=== PATIENT | male | born 1965 | race Caucasian/White ===

== ENCOUNTER 2020-08-08 11:08 | Emergency (ER) | payer MEDICAID ==
[~2020-08-08] VITALS: Ht 185.4 cm; Wt 117.7 kg
[2020-08-08 11:20] VITALS: BP 133/92
[2020-08-08] MEDS ORDERED: GABA300C PO (11:32)
== END 2020-08-08 11:41 | disposition home or self-care (01) ==
LOC: ER 11:09
DX: F10.10 Alcohol abuse, uncomplicated (principal); K21.9 Gastro-esophageal reflux disease without esophagitis; F32.9 Major depressive disorder, single episode, unspecified; Z90.89 Acquired absence of other organs; Z72.89 Other problems related to lifestyle; Z79.899 Other long term (current) drug therapy; Y90.9 Presence of alcohol in blood, level not specified
CPT/HCPCS: 99283

== ENCOUNTER 2021-07-05 16:48 | Emergency (ER) | payer MEDICAID ==
[~2021-07-05] VITALS: Ht 185.4 cm; Wt 81.8 kg
[~2021-07-05 16:48] MED LIST: GABA300C PO
[2021-07-05 17:34] LABS: BASOPHILS # (AUTO) 0.1 X10'3 (0-0.2); BASOPHILS % (AUTO) 0.8 % (0-1); EOSINOPHILS # (AUTO) 0.1 X10'3 (0-0.9); EOSINOPHILS % (AUTO) 0.7 % (0-6); HEMATOCRIT 56.8 % (42.0-52.0); LYMPHOCYTES # (AUTO) 2.2 X10'3 (1.1-4.8); LYMPHOCYTES % (AUTO) 17.3 % (21-51); MEAN CORPUSCULAR HEMOGLOBIN 30.7 PG (27.0-31.0); MEAN CORPUSCULAR HGB CONC 34.3 g/dL (33.0-36.5); MEAN CORPUSCULAR VOLUME 89.5 FL (78-98); MEAN PLATELET VOLUME 8.9 FL (7.4-10.4); MONOCYTES # (AUTO) 1.2 X10'3 (0-0.9); MONOCYTES % (AUTO) 9.3 % (2-12); NEUTROPHILS # (AUTO) 9.2 X10'3 (1.8-7.7); NEUTROPHILS % (AUTO) 71.9 % (42-75); PLATELET COUNT 286 X10'3 (140-440); RED BLOOD COUNT 6.35 X10'6 (4.70-6.10); RED CELL DISTRIBUTION WIDTH 15.7 % (11.5-14.5); WHITE BLOOD COUNT 12.8 X10'3 (4.5-11.0)
[2021-07-05 17:39] LABS: HEMOGLOBIN 19.5 g/dl (14.0-17.9)
[2021-07-05 17:45] LABS: ALANINE AMINOTRANSFERASE 379 U/L (12-78); ALBUMIN 3.9 G/DL (3.4-5.0); ALBUMIN/GLOBULIN RATIO 0.9 (1.1-1.5); ALKALINE PHOSPHATASE 113 IU/L (46-116); ANION GAP 16 (8-16); ASPARTATE AMINO TRANSFERASE 164 U/L (10-37); BILIRUBIN,TOTAL 2.1 MG/DL (0.1-1.0); BLOOD UREA NITROGEN 34 MG/DL (7-18); BUN/CREATININE RATIO 28.8 (5.4-32.0); CALCIUM 9.8 MG/DL (8.5-10.1); CHLORIDE 101 MMOL/L (99-107); CREATININE 1.18 MG/DL (0.60-1.10); GLUCOSE 118 MG/DL (70-104); POTASSIUM 3.5 MMOL/L (3.5-5.1); SODIUM 142 MMOL/L (135-145); TOTAL CARBON DIOXIDE 24.6 MMOL/L (24-32); TOTAL PROTEIN 8.3 G/DL (6.4-8.2); eGFR 64 ML/MIN
[2021-07-05] MEDS ORDERED: normal saline 1000ML IV soln IVB ONE (17:50)
[2021-07-05 17:54] LABS: ETHANOL < 0.010 GM/DL (0.0-0.010)
[2021-07-05] MEDS ORDERED: thiamine 100mg/ml 2ml inj. IV ONE (18:15)
--- NOTE | 2021-07-05 18:37 | NUR ---
pt repors drinking a pack of beer a day. when asked how many in a pack (6,18 or 24 pack), pt stated it just depended on the day. md lyn
[2021-07-05] MEDS ORDERED: OMEP-50 PO (20:08)
[2021-07-05] MEDS ORDERED: ATOR20TA66 PO (20:08)
[2021-07-05 21:02] LABS: URINE AMPHETAMINE SCREEN NEGATIVE (Neg); URINE BARBITUATE SCREEN NEGATIVE (Neg); URINE BENZODIAZEPINES SCREEN NEGATIVE (Neg); URINE CANNABINOID SCREEN NEGATIVE (Neg); URINE COCAINE SCREEN NEGATIVE (Neg); URINE METHADONE SCREEN NEGATIVE (Neg); URINE OPIATE SCREEN NEGATIVE (Neg); URINE PHENCYCLIDINE SCREEN NEGATIVE (Neg)
[2021-07-05 21:22] LABS: UA COLLECTION TYPE URINAL
[2021-07-05 21:23] LABS: CLARITY,URINE CLOUDY (Clear); COLOR,URINE AMBER (Yellow); GLUCOSE, URINE NEGATIVE (Neg); KETONES,URINE TRACE mg/dl (Neg); LEUKOCYTE ESTERASE ,URINE NEGATIVE (Neg); NITRITES, URINE NEGATIVE (Neg); OCCULT BLOOD,URINE TRACE-LYSED (Neg); PROTEIN,URINE TRACE mg/dl (Neg)
[2021-07-05 21:29] LABS: MUCUS STRANDS MANY /LPF (Neg)
[2021-07-05 21:30] LABS: SQUAMOUS EPITHELIAL CELL,UR FEW /LPF (FEW)
[2021-07-05 21:33] LABS: RBC,URINE 0-2 /HPF (0-2); WBC,URINE 0-4 /HPF (0-4)
[2021-07-05 21:37] LABS: AMORPHOUS URATES 3+; BACTERIA,URINE NONE SEEN /HPF (Neg)
[2021-07-05 21:52] VITALS: BP 120/92
== END 2021-07-05 21:54 | disposition home or self-care (01) ==
LOC: ER 16:48
DX: R41.0 Disorientation, unspecified (principal); E86.0 Dehydration; K21.9 Gastro-esophageal reflux disease without esophagitis; F32.9 Major depressive disorder, single episode, unspecified; Z79.899 Other long term (current) drug therapy
CPT/HCPCS: 36415; 70450; 71045; 80053; 80305; 80320; 81001; 82140; 83880; 84145; 84443; 84484; 85025; 93005; 96361; 96374; 99285; J3411; J7030

== ENCOUNTER 2021-07-11 05:49 | Emergency (ER) | payer MEDICAID ==
[~2021-07-11] VITALS: Ht 185.4 cm; Wt 180.0 kg
[~2021-07-11 05:49] MED LIST changes: +ATOR20TA66 PO; -GABA300C PO; +OMEP-50 PO
[2021-07-11 06:14] VITALS: BP 137/83
== END 2021-07-11 09:12 | disposition home or self-care (01) ==
LOC: ER 05:50
DX: F22 Delusional disorders (principal); E86.0 Dehydration; R00.0 Tachycardia, unspecified; K21.9 Gastro-esophageal reflux disease without esophagitis; F32.9 Major depressive disorder, single episode, unspecified; Z90.89 Acquired absence of other organs; Z72.89 Other problems related to lifestyle; Z79.899 Other long term (current) drug therapy
CPT/HCPCS: 99281; 99283

== ENCOUNTER 2021-07-11 18:30 | Emergency (ER) | payer MEDICAID ==
[~2021-07-11] VITALS: Ht 185.4 cm; Wt 81.8 kg
[2021-07-11 18:52] VITALS: BP 119/98
== END 2021-07-11 21:29 | disposition home or self-care (01) ==
LOC: ER 18:30
DX: Z20.822 Contact with and (suspected) exposure to COVID-19 (principal); R53.83 Other fatigue; R19.7 Diarrhea, unspecified; R05.9 Cough, unspecified; K21.9 Gastro-esophageal reflux disease without esophagitis; F32.9 Major depressive disorder, single episode, unspecified; Z90.89 Acquired absence of other organs; Z72.89 Other problems related to lifestyle; Z79.899 Other long term (current) drug therapy
CPT/HCPCS: 87635; 99283; C9803

== ENCOUNTER 2021-07-11 23:30 | Emergency (ER) | payer MEDICAID ==
[~2021-07-11] VITALS: Ht 185.4 cm; Wt 81.8 kg
[2021-07-11 23:43] VITALS: BP 129/101
== END 2021-07-11 23:45 | disposition home or self-care (01) ==
LOC: ER 23:31
DX: Z02.89 Encounter for other administrative examinations (principal); K21.9 Gastro-esophageal reflux disease without esophagitis; F32.9 Major depressive disorder, single episode, unspecified; F17.210 Nicotine dependence, cigarettes, uncomplicated; Z90.89 Acquired absence of other organs; Z72.89 Other problems related to lifestyle; Z79.899 Other long term (current) drug therapy
CPT/HCPCS: 99283

== ENCOUNTER 2021-07-14 01:37 | Emergency (ER) | payer MEDICAID ==
[~2021-07-14] VITALS: Ht 185.4 cm; Wt 90.9 kg
[2021-07-14] MEDS ORDERED: normal saline 1000ML IV soln IVB ONE (02:10)
[2021-07-14 03:32] LABS: BASOPHILS # (AUTO) 0.1 X10'3 (0-0.2); BASOPHILS % (AUTO) 0.6 % (0-1); EOSINOPHILS # (AUTO) 0.1 X10'3 (0-0.9); EOSINOPHILS % (AUTO) 0.7 % (0-6); HEMATOCRIT 43.6 % (42.0-52.0); HEMOGLOBIN 14.5 g/dl (14.0-17.9); LYMPHOCYTES # (AUTO) 1.4 X10'3 (1.1-4.8); LYMPHOCYTES % (AUTO) 13.2 % (21-51); MEAN CORPUSCULAR HEMOGLOBIN 30.3 PG (27.0-31.0); MEAN CORPUSCULAR HGB CONC 33.3 g/dL (33.0-36.5); MEAN CORPUSCULAR VOLUME 91.2 FL (78-98); MEAN PLATELET VOLUME 10.5 FL (7.4-10.4); MONOCYTES # (AUTO) 0.8 X10'3 (0-0.9); NEUTROPHILS # (AUTO) 8.2 X10'3 (1.8-7.7); NEUTROPHILS % (AUTO) 77.5 % (42-75); PLATELET COUNT 260 X10'3 (140-440); RED BLOOD COUNT 4.78 X10'6 (4.70-6.10); RED CELL DISTRIBUTION WIDTH 15.4 % (11.5-14.5); WHITE BLOOD COUNT 10.6 X10'3 (4.5-11.0)
[2021-07-14 03:38] LABS: ALANINE AMINOTRANSFERASE 158 U/L (12-78); ALBUMIN 3.5 G/DL (3.4-5.0); ALBUMIN/GLOBULIN RATIO 1.1 (1.1-1.5); ALKALINE PHOSPHATASE 92 IU/L (46-116); ANION GAP 11 (8-16); ASPARTATE AMINO TRANSFERASE 70 U/L (10-37); BILIRUBIN,TOTAL 1.3 MG/DL (0.1-1.0); BLOOD UREA NITROGEN 20 MG/DL (7-18); BUN/CREATININE RATIO 23.5 (5.4-32.0); CALCIUM 8.9 MG/DL (8.5-10.1); CHLORIDE 100 MMOL/L (99-107); CREATININE 0.85 MG/DL (0.60-1.10); GLUCOSE 83 MG/DL (70-104); POTASSIUM 3.7 MMOL/L (3.5-5.1); SODIUM 138 MMOL/L (135-145); TOTAL CARBON DIOXIDE 26.6 MMOL/L (24-32); TOTAL PROTEIN 6.8 G/DL (6.4-8.2); eGFR > 90 ML/MIN
[2021-07-14 03:55] LABS: ETHANOL < 0.010 GM/DL (0.0-0.010)
[2021-07-14 04:27] VITALS: BP 128/59
[2021-07-14 04:28] LABS: LARGE PLATELETS MODERATE; PLATELET ESTIMATE NORMAL
== END 2021-07-14 04:05 | disposition home or self-care (01) ==
LOC: ER 01:38
DX: R41.0 Disorientation, unspecified (principal); Z59.00 Homelessness unspecified; K21.9 Gastro-esophageal reflux disease without esophagitis; F32.9 Major depressive disorder, single episode, unspecified; Z87.81 Personal history of (healed) traumatic fracture
CPT/HCPCS: 36415; 80053; 80320; 84443; 85008; 85025; 99283; J7030

== ENCOUNTER 2021-07-14 17:49 | Emergency (ER) | payer MEDICAID ==
[~2021-07-14] VITALS: Ht 185.4 cm; Wt 88.6 kg
[2021-07-14 17:56] VITALS: BP 111/93
== END 2021-07-14 18:56 | disposition home or self-care (01) ==
LOC: ER 17:49
DX: R41.0 Disorientation, unspecified (principal); K21.9 Gastro-esophageal reflux disease without esophagitis; F32.9 Major depressive disorder, single episode, unspecified; Z59.00 Homelessness unspecified
CPT/HCPCS: 99283

== ENCOUNTER 2022-01-25 14:20 | Emergency (ER) | payer MEDICAID ==
[~2022-01-25] VITALS: Ht 185.4 cm; Wt 113.0 kg
[~2022-01-25 14:20] MED LIST changes: -OMEP-50 PO; +OMEP20CA16 PO
[2022-01-25 14:30] VITALS: BP 112/76
== END 2022-01-25 17:02 | disposition left against medical advice (07) ==
LOC: ER 14:22
DX: R44.3 Hallucinations, unspecified (principal); Z53.21 Procedure and treatment not carried out due to patient leaving prior to being seen by health care provider

== ENCOUNTER 2022-01-30 17:13 | Emergency (ER) | payer MEDICAID ==
[~2022-01-30] VITALS: Ht 185.4 cm; Wt 93.0 kg
[2022-01-30 18:02] LABS: BASOPHILS # (AUTO) 0.1 X10'3 (0-0.2); BASOPHILS % (AUTO) 0.7 % (0-1); EOSINOPHILS # (AUTO) 0.3 X10'3 (0-0.9); HEMATOCRIT 50.3 % (42.0-52.0); HEMOGLOBIN 17.1 g/dl (14.0-17.9); LYMPHOCYTES # (AUTO) 2.3 X10'3 (1.1-4.8); LYMPHOCYTES % (AUTO) 22.5 % (21-51); MEAN CORPUSCULAR HEMOGLOBIN 29.6 PG (27.0-31.0); MEAN CORPUSCULAR HGB CONC 34.1 g/dL (33.0-36.5); MEAN CORPUSCULAR VOLUME 86.9 FL (78-98); MEAN PLATELET VOLUME 8.8 FL (7.4-10.4); MONOCYTES # (AUTO) 0.7 X10'3 (0-0.9); MONOCYTES % (AUTO) 6.4 % (2-12); NEUTROPHILS % (AUTO) 67.4 % (42-75); PLATELET COUNT 237 X10'3 (140-440); RED BLOOD COUNT 5.78 X10'6 (4.70-6.10); WHITE BLOOD COUNT 10.5 X10'3 (4.5-11.0)
[2022-01-30 19:03] LABS: ALANINE AMINOTRANSFERASE 23 U/L (12-78); ALBUMIN 4.4 G/DL (3.4-5.0); ALBUMIN/GLOBULIN RATIO 1.2 (1.1-1.5); ALKALINE PHOSPHATASE 90 IU/L (46-116); ANION GAP 15 (8-16); ASPARTATE AMINO TRANSFERASE 17 U/L (10-37); BILIRUBIN,TOTAL 0.9 MG/DL (0.1-1.0); BLOOD UREA NITROGEN 13 MG/DL (7-18); BUN/CREATININE RATIO 13.4 (5.4-32.0); CALCIUM 9.6 MG/DL (8.5-10.1); CHLORIDE 100 MMOL/L (99-107); CREATININE 0.97 MG/DL (0.60-1.10); GLUCOSE 83 MG/DL (70-104); POTASSIUM 3.7 MMOL/L (3.5-5.1); SODIUM 138 MMOL/L (135-145); TOTAL CARBON DIOXIDE 22.7 MMOL/L (24-32); eGFR 79 ML/MIN
[2022-01-30 19:12] LABS: ETHANOL < 0.010 GM/DL (0.0-0.010)
[2022-01-30 20:21] LABS: CLARITY,URINE CLEAR (Clear); GLUCOSE, URINE NEGATIVE (Neg); KETONES,URINE 15 mg/dl (Neg); LEUKOCYTE ESTERASE ,URINE NEGATIVE (Neg); NITRITES, URINE NEGATIVE (Neg); OCCULT BLOOD,URINE NEGATIVE (Neg); PH,URINE 5.5 (4.8-8.0); PROTEIN,URINE TRACE mg/dl (Neg)
[2022-01-30 20:23] LABS: COLOR,URINE AMBER (Yellow); UA COLLECTION TYPE VOIDED
[2022-01-30 20:29] LABS: BACTERIA,URINE NONE SEEN /HPF (Neg); MUCUS STRANDS MANY /LPF (Neg); RBC,URINE NONE SEEN /HPF (0-2); SQUAMOUS EPITHELIAL CELL,UR FEW /LPF (FEW); WBC,URINE 0-4 /HPF (0-4)
[2022-01-30 20:32] LABS: URINE AMPHETAMINE SCREEN NEGATIVE (Neg); URINE BARBITUATE SCREEN NEGATIVE (Neg); URINE BENZODIAZEPINES SCREEN NEGATIVE (Neg); URINE CANNABINOID SCREEN NEGATIVE (Neg); URINE COCAINE SCREEN NEGATIVE (Neg); URINE METHADONE SCREEN NEGATIVE (Neg); URINE OPIATE SCREEN NEGATIVE (Neg); URINE PHENCYCLIDINE SCREEN NEGATIVE (Neg)
--- NOTE | 2022-01-30 23:08 | NUR ---
Pt pink, no acute/resp distress. Bed in lowest position, wheels locked, rail 2/2 up. Pt laying supine. Pt able to reposition self prn. Will continue to monitor for acute changes and needs.
--- NOTE | 2022-01-31 02:25 | NUR ---
Patient's was sent to [facility].
--- NOTE | 2022-01-31 05:59 | NUR ---
Covid swab collected, labeled and walked to lab. Pt pink, no acute/resp distress. Bed in lowest position, wheels locked, rail 2/2 up. Pt laying left. Pt able to reposition self prn. Will continue to monitor for acute changes and needs.
--- NOTE | 2022-01-31 06:00 | NUR ---
Hand off report to daysmdft RN
--- NOTE | 2022-01-31 06:01 | NUR ---
Covid swab collected, labeled and walked to lab. Pt aroldo well remained pink. Pt pink, no acute/resp distress. Bed in lowest position, wheels locked, rail 2/2 up. Pt laying supine. Pt able to reposition self prn. Will continue to monitor for acute changes and needs.
--- NOTE | 2022-01-31 06:02 | NUR ---
Handoff report to dayshift RN
--- NOTE | 2022-01-31 06:50 | NUR ---
Pt is awake and alert. Stated that he has memory issues. Cooperative.
[2022-01-31] MEDS ORDERED: nicotine 14mg patch - 24hr TD ONE (07:45)
--- NOTE | 2022-01-31 07:48 | NUR ---
PATIENT CHANGED INTO GREEN SCRUB PANTS AND WHITE SHIRT. BELONGINGS COLLECTED AND CHARTED ON PAPER, BAGS TAKEN TO 27 LOCK UP.
--- NOTE | 2022-01-31 09:00 | NUR ---
Pt ate 100% of breakfast.
--- NOTE | 2022-01-31 12:45 | NUR ---
Pt ate 90% of lunch.
--- NOTE | 2022-01-31 19:00 | NUR ---
The patient was moved to bed 27 in the main ER. He was very cooperative with the move. He has very poor short term memory and unable to give any kind of history about coming to the ER. He did state that he was an alcholic but has not been drinking for quite some time. He is only oriented to himself.
--- NOTE | 2022-01-31 21:19 | NUR ---
The patient has been resting on his bed. He is pleasant.
--- NOTE | 2022-01-31 23:10 | NUR ---
The patient is resting quietly on his bed but awake
--- NOTE | 2022-01-31 23:19 | NUR ---
The patient is unable to sleep and Dr. Hayes made aware and orders received.
[2022-01-31] MEDS ORDERED: traZODone 50mg tablet PO ONE (23:20)
--- NOTE | 2022-02-01 01:02 | NUR ---
The patient appears to be sleeping
--- NOTE | 2022-02-01 01:59 | NUR ---
The patient appears to be sleeping
--- NOTE | 2022-02-01 03:48 | NUR ---
The patient appears to be sleeping
--- NOTE | 2022-02-01 05:21 | NUR ---
The patient appears to be sleeping
--- NOTE | 2022-02-01 19:26 | NUR ---
The patient was moved to bed 25 at change of shift but after about one hour he asked to be moved back to bed 27 because he was bothered by the TV. He is very pleasant when approached. He has been resting on his bed. He has very poor short term memory. When asked what his discharge plans would be if he were to be discharged and he stated he did not know. He did state that he knew he was at [facility] and he knew the year but not the month. He ate 100% of his evening dinner. He is drinking fluids. He has not had any agitation or aggressive behaviors.
[2022-02-01] MEDS ORDERED: traZODone 50mg tablet PO SCH (20:00)
--- NOTE | 2022-02-01 20:41 | NUR ---
Currently the patient appears to be sleeping.
--- NOTE | 2022-02-01 22:31 | NUR ---
The patient appears to be sleeping
--- NOTE | 2022-02-02 00:49 | NUR ---
The patient appears to be sleeping
--- NOTE | 2022-02-02 01:54 | NUR ---
The patient appears to be sleeping
--- NOTE | 2022-02-02 03:48 | NUR ---
The patient appears to be sleeping
--- NOTE | 2022-02-02 04:58 | NUR ---
The patient appears to be sleeping
--- NOTE | 2022-02-02 07:00 | NUR ---
Pt resting on right side, respirations even and unlabored.
--- NOTE | 2022-02-02 08:24 | NUR ---
ORDERED SOCIAL SERVICE CONSULT.
--- NOTE | 2022-02-02 09:00 | NUR ---
Pt sleeping after he ate 100% of his breakfast. Pt denies psychotic symptoms, states he is here r/t his "memory issue."
--- NOTE | 2022-02-02 11:00 | NUR ---
Pt lying in low robison's position with eyes open. No apparent distress noted.
--- NOTE | 2022-02-02 13:00 | NUR ---
Pt is being discharged home to dad and step mom. Patient awake lying on his bed.
--- NOTE | 2022-02-02 14:50 | NUR ---
Pt's step mom came to pharmacy picking tech pt, as soon as pt saw her he begain getting agitated. Pt stated "so are you going to start lying about me again." Pt stated "I have a bad feeling about this." Pt repeated this several times. When asked if he wanted to go home pt stated "No, all they do is lie about me." "They stole my credit cards." "I have memory issues, so they mess with my head." When asked if he wanted to go to the [place] pt stated "anything is better then going home." Combining Machine Operator called JADE Mercedes to relay recent plan change. When asked is he was suicidal or homicial pt stated "I never was." "I just have memory problems." Combining Machine Operator also confirmed with ZULMA Kennedy clinician. Pt was given two bus passes. Pt left with all personal belongings.
--- NOTE | 2022-02-02 16:03 | NUR ---
PT LEFT UNIT AT 1505.
[2022-02-02 16:04] VITALS: BP 97/64
== END 2022-02-02 15:05 | disposition home or self-care (01) ==
LOC: ER 17:14
DX: F31.9 Bipolar disorder, unspecified (principal); F17.200 Nicotine dependence, unspecified, uncomplicated; K21.9 Gastro-esophageal reflux disease without esophagitis; Z73.6 Limitation of activities due to disability; Z20.822 Contact with and (suspected) exposure to COVID-19
CPT/HCPCS: 36415; 70450; 80053; 80305; 80320; 81001; 82140; 84443; 85025; 87635; 93005; 99285; C9803

== ENCOUNTER 2022-02-07 10:59 | Emergency (ER) | payer MEDICAID ==
[~2022-02-07] VITALS: Ht 185.4 cm; Wt 93.2 kg
[2022-02-07 11:28] VITALS: BP 121/87
== END 2022-02-07 14:45 | disposition home or self-care (01) ==
LOC: ER 10:59
DX: S06.9X9A Unspecified intracranial injury with loss of consciousness of unspecified duration, initial encounter (principal); R51.9 Headache, unspecified; K21.9 Gastro-esophageal reflux disease without esophagitis; F32.A Depression, unspecified; Z87.81 Personal history of (healed) traumatic fracture; W19.XXXA Unspecified fall, initial encounter; Y93.89 Activity, other specified; Y92.89 Other specified places as the place of occurrence of the external cause; Y99.8 Other external cause status
CPT/HCPCS: 99284; 99285

== ENCOUNTER 2022-06-08 12:28 | Inpatient (IN) | payer MEDICAID ==
[~2022-06-08] VITALS: Ht 185.4 cm; Wt 94.0 kg
[2022-06-08] VITALS (13 sets, daily range): BP systolic 120–146; BP diastolic 74–88
[2022-06-08 13:07] LABS: BASOPHILS # (AUTO) 0.1 X10'3 (0-0.2); BASOPHILS % (AUTO) 0.3 % (0-1); EOSINOPHILS % (AUTO) 0 % (0-6); HEMATOCRIT 45.2 % (42.0-52.0); LYMPHOCYTES # (AUTO) 0.5 X10'3 (1.1-4.8); LYMPHOCYTES % (AUTO) 2.7 % (21-51); MEAN CORPUSCULAR HGB CONC 33.1 g/dL (33.0-36.5); MEAN CORPUSCULAR VOLUME 87.5 FL (78-98); MEAN PLATELET VOLUME 8.9 FL (7.4-10.4); MONOCYTES # (AUTO) 1.2 X10'3 (0-0.9); MONOCYTES % (AUTO) 5.9 % (2-12); NEUTROPHILS # (AUTO) 17.9 X10'3 (1.8-7.7); NEUTROPHILS % (AUTO) 91.1 % (42-75); PLATELET COUNT 194 X10'3 (140-440); RED BLOOD COUNT 5.16 X10'6 (4.70-6.10); RED CELL DISTRIBUTION WIDTH 14.2 % (11.5-14.5); WHITE BLOOD COUNT 19.7 X10'3 (4.5-11.0)
[2022-06-08 13:20] LABS: ALANINE AMINOTRANSFERASE 18 U/L (12-78); ALBUMIN 3.4 G/DL (3.4-5.0); ALBUMIN/GLOBULIN RATIO 1.2 (1.1-1.5); ALKALINE PHOSPHATASE 69 IU/L (46-116); ANION GAP 13 (8-16); ASPARTATE AMINO TRANSFERASE 9 U/L (10-37); BILIRUBIN,TOTAL 0.7 MG/DL (0.1-1.0); BLOOD UREA NITROGEN 22 MG/DL (7-18); BUN/CREATININE RATIO 15.1 (5.4-32.0); CHLORIDE 106 MMOL/L (99-107); CREATININE 1.46 MG/DL (0.60-1.10); GLUCOSE 142 MG/DL (70-104); LIPASE < 50 U/L (73-393); POTASSIUM 3.4 MMOL/L (3.5-5.1); SODIUM 142 MMOL/L (135-145); TOTAL CARBON DIOXIDE 23.2 MMOL/L (24-32); TOTAL PROTEIN 6.3 G/DL (6.4-8.2); eGFR 50 ML/MIN
[2022-06-08 14:22] LABS: CLARITY,URINE CLEAR (Clear); GLUCOSE, URINE NEGATIVE (Neg); KETONES,URINE 15 mg/dl (Neg); LEUKOCYTE ESTERASE ,URINE NEGATIVE (Neg); NITRITES, URINE NEGATIVE (Neg); OCCULT BLOOD,URINE SMALL (Neg); PROTEIN,URINE 30 mg/dl (Neg); UROBILINOGEN,URINE 0.2 E.U/dL (0.2-1.0)
[2022-06-08 14:26] LABS: COLOR,URINE DARK YELLOW (Yellow); UA COLLECTION TYPE CLN CATCH MIDSTREAM
[2022-06-08 14:29] LABS: BACTERIA,URINE 2+ /HPF (Neg); WBC,URINE 30-50 /HPF (0-4)
[2022-06-08 14:30] LABS: SQUAMOUS EPITHELIAL CELL,UR FEW /LPF (FEW)
[2022-06-08 14:31] LABS: CELLULAR CAST 0-4 /LPF (NEGATIVE); WBC CASTS 0-3 /LPF (NEGATIVE)
[2022-06-08 14:32] LABS: MUCUS STRANDS MODERATE /LPF (Neg)
[2022-06-08] MEDS ORDERED: ceFOXitin 2GM-NS 100mL ADDvant 100 ML IV ONE (14:35)
[2022-06-08] MEDS ORDERED: metoclopramide 5 mg/ml inj IV PRN (15:40)
[2022-06-08] MEDS ORDERED: HYDROcodone/acetaminophen 5mg/325mg tablet PO PRN (15:40)
[2022-06-08] MEDS ORDERED: morphine 2 MG/ML inj. syringe IV PRN ×2 (15:40→19:50)
[2022-06-08] MEDS ORDERED: acetaminophen 325mg tablet PO PRN ×2 (15:40)
[2022-06-08] MEDS ORDERED: magnesium hydroxide 30ml (MOM) UD suspension PO PRN (15:40)
[2022-06-08] MEDS ORDERED: ondansetron/PF 4mg/2ml inj IV PRN ×2 (15:40→19:50)
[2022-06-08] MEDS: piperacillin/tazo 4.5gm/100ml 100 ML IV SCH (16:02)
[2022-06-08] MEDS: dextrose 5%-1/2 normal saline 1,000 ML IV SCH (16:02)
[2022-06-08] MEDS ORDERED: CHOL500049 PO (17:19)
[2022-06-08] MEDS ORDERED: DONE-46 PO (17:19)
[2022-06-08] MEDS: morphine 2 MG/ML inj. syringe IV PRN (18:53)
--- NOTE | 2022-06-08 19:07 | NUR ---
Dr. Vuong just in with patient, consent for surgery done and family callled.
--- NOTE | 2022-06-08 19:20 | NUR ---
OR team to take patient to OR from ER.
--- NOTE | 2022-06-08 19:39 | NUR ---
Left for OR
[2022-06-08] MEDS ORDERED: morphine 4 MG/ML inj SYRINge IV PRN (19:50)
[2022-06-08] MEDS ORDERED: proCHLORperazine 10 MG/2 ml inj IV PRN (19:50)
[2022-06-08] MEDS ORDERED: ringers solution, lacted 1,000 ML IV SCH (19:50)
[2022-06-08] MEDS ORDERED: meperidine/PF 25mg/ml syringe IV PRN ×3 (19:50)
[2022-06-08] MEDS ORDERED: fentaNYL /PF 50mcg/ml 5ml ampule ONE (19:53)
[2022-06-08] MEDS ORDERED: rocuronium 10mg/ml inj IV ONE ×2 (19:55→19:59)
[2022-06-08] MEDS ORDERED: LIDOcaine 2% (20mg/ml) 5ml vial ONE (19:55)
[2022-06-08] MEDS ORDERED: dexamethasone sod phosphate 4mg/ml inj. ONE ×2 (19:55→20:40)
[2022-06-08] MEDS ORDERED: propofol inj 20 ML IV ONE (19:55)
[2022-06-08] MEDS ORDERED: esmolol 10mg/ml inj IV ONE (19:59)
[2022-06-08] MEDS ORDERED: sevoflurane 250ml liquid IH ONE (19:59)
[2022-06-08] MEDS ORDERED: BUPIVAcaine/PF 2.5 mg/ml (0.25%) 30ml vial ONE (20:37)
[2022-06-08] MEDS ORDERED: ePHEDrine 50MG/ML INJ. ONE (20:40)
[2022-06-08] MEDS ORDERED: phenylephrine 10mg/ml inj. ONE (20:40)
[2022-06-08] MEDS ORDERED: ondansetron/PF 4mg/2ml inj ONE (20:40)
[2022-06-08] MEDS ORDERED: sugammadex 200mg/2ml injection IV ONE (20:57)
[2022-06-08] MEDS ORDERED: meperidine/PF 25mg/ml syringe ONE (21:05)
[2022-06-08] MEDS ORDERED: albumin (Human) 5% 250ml 250 ML IV ONE ×2 (21:07→21:13)
--- NOTE | 2022-06-08 21:09 | NUR ---
Received from OR via HOSPITAL BED , accompanied by Anesthesiologist DR MARIE and report given by Anesthesiolgist. PT PRESENTS WITH PIV 18G LEFT AC, ABD DRESSING WITH ROSALES DRAIN CDI, VSS. Addendum: 06/08/22 at 2132 by Fiona Guthrie RN, RN Amended: Links added.
[2022-06-08] MEDS ORDERED: HYDROcodone/acetaminophen 10/325mg tab PO PRN (21:10)
[2022-06-08] MEDS ORDERED: naloxone 0.4 mg/ml inj IV PRN (21:10)
[2022-06-08] MEDS ORDERED: furosemide 10 MG/1 ML 10ml inj IV ONE (21:25)
[2022-06-08] MEDS ORDERED: furosemide 20 MG/2 ML vial IV ONE (21:35)
--- NOTE | 2022-06-08 22:29 | NUR ---
Report called to receiving nurse KAYLA AGUILAR. Transferred via HOSPITAL BED ON TELE MONITOR TO ROOM 4024A. BED IN LOW LOCKED POSITION, PT HOOKED UP TO VITALS MONITOR, CALL LIGHT IN REACH. ONE PT Belongings BAG TAKEN TO ROOM 4024A. Special Issues communicated to receiving nurse. Addendum: 06/08/22 at 2234 by Fiona Guthrie RN, RN Amended: Links added.
[2022-06-09] VITALS (9 sets, daily range): BP systolic 105–179; BP diastolic 69–103
[2022-06-09] MEDS: dextrose 5%-1/2 normal saline 1,000 ML IV SCH ×3 (01:19→19:49)
[2022-06-09] MEDS: HYDROcodone/acetaminophen 10/325mg tab PO PRN ×2 (01:23→11:32)
[2022-06-09] MEDS: docusate sod 100mg capsule PO SCH ×3 (01:23→19:49)
[2022-06-09] MEDS: piperacillin/tazo 4.5gm/100ml 100 ML IV SCH ×4 (01:23→23:57)
[2022-06-09 06:17] LABS: BASOPHILS % (AUTO) 0.1 % (0-1); EOSINOPHILS % (AUTO) 0.1 % (0-6); HEMATOCRIT 43.2 % (42.0-52.0); HEMOGLOBIN 14.6 g/dl (14.0-17.9); LYMPHOCYTES # (AUTO) 0.4 X10'3 (1.1-4.8); LYMPHOCYTES % (AUTO) 2.4 % (21-51); MEAN CORPUSCULAR HEMOGLOBIN 29.9 PG (27.0-31.0); MEAN CORPUSCULAR HGB CONC 33.9 g/dL (33.0-36.5); MEAN CORPUSCULAR VOLUME 88.2 FL (78-98); MEAN PLATELET VOLUME 9.8 FL (7.4-10.4); MONOCYTES # (AUTO) 0.8 X10'3 (0-0.9); MONOCYTES % (AUTO) 5.4 % (2-12); NEUTROPHILS # (AUTO) 14.2 X10'3 (1.8-7.7); PLATELET COUNT 150 X10'3 (140-440); RED CELL DISTRIBUTION WIDTH 14.3 % (11.5-14.5); WHITE BLOOD COUNT 15.4 X10'3 (4.5-11.0)
--- NOTE | 2022-06-09 06:24 | NUR ---
Patient in room ORTHO 4024. I have received report from Cori AGUILAR and had the opportunity to ask questions and assume patient care.
[2022-06-09 06:40] LABS: ALBUMIN 3.8 G/DL (3.4-5.0); ANION GAP 13 (8-16); BLOOD UREA NITROGEN 16 MG/DL (7-18); BUN/CREATININE RATIO 14.7 (5.4-32.0); CALCIUM 8.8 MG/DL (8.5-10.1); CHLORIDE 103 MMOL/L (99-107); CREATININE 1.09 MG/DL (0.60-1.10); GLUCOSE 168 MG/DL (70-104); POTASSIUM 3.8 MMOL/L (3.5-5.1); SODIUM 139 MMOL/L (135-145); TOTAL CARBON DIOXIDE 23.2 MMOL/L (24-32); eGFR 69 ML/MIN
[2022-06-09] MEDS: nicotine 21mg patch - 24 hr TD SCH (11:15)
--- NOTE | 2022-06-09 13:13 | NUR ---
pt ambulated 300 ft unassisted.
[2022-06-09] MEDS: morphine 2 MG/ML inj. syringe IV PRN ×2 (14:16→21:31)
--- NOTE | 2022-06-09 17:35 | NUR ---
Dr. Vuong at bedside at 1440 and instructed RN to place NG tube if pt's pain does not improve in 30 minutes. NG tube placed and pt immediately could not tolerate it and insisted I remove it. Ambulated pt and pt's pain is much better.
[2022-06-09] MEDS: LORazepam 0.5 MG tablet PO PRN (19:49)
[2022-06-09] MEDS: metoclopramide 5 mg/ml inj IV SCH (19:49)
[2022-06-09] MEDS: mag hydrox/Alum hydrox/simeth 30ml oral suspension PO PRN (21:31)
[2022-06-10] MEDS: metoclopramide 5 mg/ml inj IV SCH ×4 (03:32→20:12)
[2022-06-10] MEDS: dextrose 5%-1/2 normal saline 1,000 ML IV SCH ×3 (05:22→22:09)
[2022-06-10 06:00] VITALS: BP 115/80
[2022-06-10 06:09] LABS: BASOPHILS % (AUTO) 0.3 % (0-1); EOSINOPHILS # (AUTO) 0.1 X10'3 (0-0.9); EOSINOPHILS % (AUTO) 1.2 % (0-6); HEMATOCRIT 45.9 % (42.0-52.0); HEMOGLOBIN 15.4 g/dl (14.0-17.9); LYMPHOCYTES # (AUTO) 0.5 X10'3 (1.1-4.8); LYMPHOCYTES % (AUTO) 3.9 % (21-51); MEAN CORPUSCULAR HEMOGLOBIN 29.1 PG (27.0-31.0); MEAN CORPUSCULAR HGB CONC 33.7 g/dL (33.0-36.5); MEAN CORPUSCULAR VOLUME 86.3 FL (78-98); MEAN PLATELET VOLUME 9.6 FL (7.4-10.4); MONOCYTES # (AUTO) 0.8 X10'3 (0-0.9); MONOCYTES % (AUTO) 6.7 % (2-12); NEUTROPHILS # (AUTO) 11.2 X10'3 (1.8-7.7); NEUTROPHILS % (AUTO) 87.9 % (42-75); PLATELET COUNT 152 X10'3 (140-440); RED BLOOD COUNT 5.31 X10'6 (4.70-6.10); RED CELL DISTRIBUTION WIDTH 14.6 % (11.5-14.5); WHITE BLOOD COUNT 12.7 X10'3 (4.5-11.0)
[2022-06-10 06:26] LABS: ALBUMIN 3.2 G/DL (3.4-5.0); ANION GAP 11 (8-16); BLOOD UREA NITROGEN 9 MG/DL (7-18); CALCIUM 8.8 MG/DL (8.5-10.1); CHLORIDE 99 MMOL/L (99-107); CREATININE 0.69 MG/DL (0.60-1.10); GLUCOSE 131 MG/DL (70-104); POTASSIUM 3.1 MMOL/L (3.5-5.1); SODIUM 137 MMOL/L (135-145); TOTAL CARBON DIOXIDE 27.4 MMOL/L (24-32); eGFR > 90 ML/MIN
--- NOTE | 2022-06-10 06:46 | NUR ---
Patient in room ORTHO 4024. I have received report from KAYLA AGUILAR and had the opportunity to ask questions and assume patient care.
[2022-06-10] MEDS: docusate sod 100mg capsule PO SCH ×2 (08:00→20:00)
[2022-06-10] MEDS: piperacillin/tazo 4.5gm/100ml 100 ML IV SCH ×2 (08:05→17:05)
[2022-06-10] MEDS: nicotine 21mg patch - 24 hr TD SCH (08:06)
--- NOTE | 2022-06-10 09:34 | NUR ---
PAGED DR TOMAS RE: Message: HORTENCIA BEDOYA. Murtaza 3.1. NEED K REPLACEMENT PROTOCO ORDER. [facility] [id number] O/N.
[2022-06-10] MEDS ORDERED: potassium Cl 20 mEq SR tablet PO PRN (09:55)
[2022-06-10] MEDS ORDERED: magnesium Cl slow-release 64mg tablet PO PRN (09:55)
[2022-06-10] MEDS ORDERED: magnesium 4gm in 100ml NS 100 ML IV PRN (09:55)
[2022-06-10 11:19] VITALS: BP 145/102
[2022-06-10] MEDS: mag hydrox/Alum hydrox/simeth 30ml oral suspension PO PRN (11:55)
[2022-06-10] MEDS: potassium CL 10mEq/100ml bag 100 ML IV PRN ×3 (12:04→20:37)
--- NOTE | 2022-06-10 13:31 | NUR ---
Ambulated with pt 300 ft.
[2022-06-10] MEDS: HYDROcodone/acetaminophen 10/325mg tab PO PRN (14:14)
[2022-06-10 18:00] VITALS: BP 140/94
--- NOTE | 2022-06-10 18:46 | NUR ---
Problems reprioritized. Patient report given, questions answered & plan of care reviewed with JACKELYN HAYDEN RN.
--- NOTE | 2022-06-10 18:48 | NUR ---
Patient in room ORTHO 4024. I have received report from MARY AGUILAR and had the opportunity to ask questions and assume patient care.
[2022-06-10] MEDS: K and/or MAG REPLACEMENT MC SCH (20:00)
[2022-06-10] MEDS: heparin, porcine 5000 units/ml vial SQ SCH (20:13)
[2022-06-10 22:00] VITALS: BP 131/87
[2022-06-11] MEDS: piperacillin/tazo 4.5gm/100ml 100 ML IV SCH ×2 (01:33→07:27)
[2022-06-11] MEDS: potassium CL 10mEq/100ml bag 100 ML IV PRN (01:34)
[2022-06-11] MEDS: metoclopramide 5 mg/ml inj IV SCH ×4 (02:49→20:14)
[2022-06-11 05:42] LABS: BASOPHILS # (AUTO) 0.1 X10'3 (0-0.2); BASOPHILS % (AUTO) 0.6 % (0-1); EOSINOPHILS # (AUTO) 0.4 X10'3 (0-0.9); EOSINOPHILS % (AUTO) 3.2 % (0-6); HEMATOCRIT 46.2 % (42.0-52.0); HEMOGLOBIN 15.4 g/dl (14.0-17.9); LYMPHOCYTES % (AUTO) 8.4 % (21-51); MEAN CORPUSCULAR HEMOGLOBIN 29.1 PG (27.0-31.0); MEAN CORPUSCULAR HGB CONC 33.3 g/dL (33.0-36.5); MEAN CORPUSCULAR VOLUME 87.3 FL (78-98); MEAN PLATELET VOLUME 9.5 FL (7.4-10.4); MONOCYTES # (AUTO) 0.9 X10'3 (0-0.9); MONOCYTES % (AUTO) 7.9 % (2-12); NEUTROPHILS # (AUTO) 9.5 X10'3 (1.8-7.7); NEUTROPHILS % (AUTO) 79.9 % (42-75); PLATELET COUNT 183 X10'3 (140-440); RED BLOOD COUNT 5.28 X10'6 (4.70-6.10); RED CELL DISTRIBUTION WIDTH 14.4 % (11.5-14.5); WHITE BLOOD COUNT 11.9 X10'3 (4.5-11.0)
[2022-06-11 05:55] LABS: ANION GAP 9 (8-16); BLOOD UREA NITROGEN 8 MG/DL (7-18); BUN/CREATININE RATIO 11.9 (5.4-32.0); CALCIUM 8.6 MG/DL (8.5-10.1); CHLORIDE 100 MMOL/L (99-107); CREATININE 0.67 MG/DL (0.60-1.10); GLUCOSE 102 MG/DL (70-104); SODIUM 135 MMOL/L (135-145); eGFR > 90 ML/MIN
[2022-06-11 05:57] LABS: PHOSPHORUS 2.7 MG/DL (2.3-4.5); POTASSIUM 3.9 MMOL/L (3.5-5.1)
[2022-06-11 06:17] VITALS: BP 114/70
--- NOTE | 2022-06-11 06:30 | NUR ---
Problems reprioritized. Patient report given, questions answered & plan of care reviewed with MARY AGUILAR.
[2022-06-11] MEDS: K and/or MAG REPLACEMENT MC SCH ×2 (06:57→20:46)
[2022-06-11] MEDS: nicotine 21mg patch - 24 hr TD SCH (07:19)
[2022-06-11] MEDS: heparin, porcine 5000 units/ml vial SQ SCH ×2 (07:19→20:15)
[2022-06-11] MEDS: docusate sod 100mg capsule PO SCH ×2 (07:19→20:15)
--- NOTE | 2022-06-11 07:57 | NUR ---
Problems reprioritized. Patient report given, questions answered & plan of care reviewed with richy dunlap.
--- NOTE | 2022-06-11 08:00 | NUR ---
Patient in room ORTHO 4024. I have received report from Kim AGUILAR and had the opportunity to ask questions and assume patient care.
[2022-06-11 10:00] VITALS: BP 117/78
[2022-06-11] MEDS: piperacillin/tazo 3.375gm/50ml 50 ML IV SCH (15:39)
[2022-06-11] MEDS: dextrose 5%-1/2 normal saline 1,000 ML IV SCH (15:44)
[2022-06-11 19:00] VITALS: BP 110/78
[2022-06-12] MEDS: metoclopramide 5 mg/ml inj IV SCH ×4 (01:05→19:55)
[2022-06-12] MEDS: LORazepam 0.5 MG tablet PO PRN (01:11)
[2022-06-12] MEDS: piperacillin/tazo 3.375gm/50ml 50 ML IV SCH ×3 (01:58→16:41)
[2022-06-12] MEDS: dextrose 5%-1/2 normal saline 1,000 ML IV SCH ×3 (02:06→20:04)
[2022-06-12 05:00] VITALS: BP 126/83
--- NOTE | 2022-06-12 06:31 | NUR ---
[Patient resting most of day. small amount of gas passed per patient report.ROSALES dressing changed 70mls observed serosang. No c/o pain. Report given to Rosario AGUILAR
--- NOTE | 2022-06-12 06:32 | NUR ---
Patient in room ORTHO 4024. I have received report from Jasmin AGUILAR and had the opportunity to ask questions and assume patient care.
[2022-06-12] MEDS: docusate sod 100mg capsule PO SCH ×2 (07:55→19:26)
[2022-06-12] MEDS: heparin, porcine 5000 units/ml vial SQ SCH ×2 (07:57→19:55)
[2022-06-12] MEDS: K and/or MAG REPLACEMENT MC SCH ×2 (08:00→19:26)
[2022-06-12] MEDS: nicotine 21mg patch - 24 hr TD SCH (08:09)
[2022-06-12 08:37] LABS: BASOPHILS # (AUTO) 0.1 X10'3 (0-0.2); BASOPHILS % (AUTO) 0.5 % (0-1); EOSINOPHILS # (AUTO) 0.4 X10'3 (0-0.9); HEMATOCRIT 47.5 % (42.0-52.0); HEMOGLOBIN 15.6 g/dl (14.0-17.9); LYMPHOCYTES # (AUTO) 1.7 X10'3 (1.1-4.8); LYMPHOCYTES % (AUTO) 13.3 % (21-51); MEAN CORPUSCULAR HEMOGLOBIN 28.8 PG (27.0-31.0); MEAN CORPUSCULAR VOLUME 87.5 FL (78-98); MEAN PLATELET VOLUME 9.8 FL (7.4-10.4); MONOCYTES # (AUTO) 1.1 X10'3 (0-0.9); MONOCYTES % (AUTO) 8.7 % (2-12); NEUTROPHILS # (AUTO) 9.4 X10'3 (1.8-7.7); NEUTROPHILS % (AUTO) 74.5 % (42-75); PLATELET COUNT 207 X10'3 (140-440); RED BLOOD COUNT 5.43 X10'6 (4.70-6.10); RED CELL DISTRIBUTION WIDTH 14.3 % (11.5-14.5); WHITE BLOOD COUNT 12.7 X10'3 (4.5-11.0)
[2022-06-12 09:00] LABS: ALBUMIN 3.1 G/DL (3.4-5.0); ANION GAP 12 (8-16); BLOOD UREA NITROGEN 7 MG/DL (7-18); BUN/CREATININE RATIO 9.7 (5.4-32.0); CALCIUM 8.9 MG/DL (8.5-10.1); CHLORIDE 100 MMOL/L (99-107); CREATININE 0.72 MG/DL (0.60-1.10); GLUCOSE 107 MG/DL (70-104); MAGNESIUM 2.1 MG/DL (1.5-2.4); PHOSPHORUS 2.9 MG/DL (2.3-4.5); POTASSIUM 3.3 MMOL/L (3.5-5.1); SODIUM 137 MMOL/L (135-145); TOTAL CARBON DIOXIDE 24.8 MMOL/L (24-32); eGFR > 90 ML/MIN
[2022-06-12 10:00] VITALS: BP 105/74
[2022-06-12] MEDS: potassium Cl 20 mEq SR tablet PO PRN ×3 (11:13→21:02)
--- NOTE | 2022-06-12 17:53 | NUR ---
I have reviewed and agree with and/or made changes to all interventions, assessments performed and documented by JEFF Gamez.
[2022-06-12 18:00] VITALS: BP 118/98
--- NOTE | 2022-06-12 18:44 | NUR ---
Problems reprioritized. Patient report given, questions answered & plan of care reviewed with Yamileth AGUILAR.
[2022-06-12 22:00] VITALS: BP 154/102
[2022-06-13] MEDS: piperacillin/tazo 3.375gm/50ml 50 ML IV SCH ×3 (00:18→16:22)
[2022-06-13] MEDS: metoclopramide 5 mg/ml inj IV SCH ×2 (02:14→08:38)
[2022-06-13 06:00] VITALS: BP 120/84
[2022-06-13 06:35] LABS: BASOPHILS # (AUTO) 0.1 X10'3 (0-0.2); BASOPHILS % (AUTO) 0.4 % (0-1); EOSINOPHILS # (AUTO) 0.3 X10'3 (0-0.9); EOSINOPHILS % (AUTO) 2.7 % (0-6); HEMATOCRIT 44.3 % (42.0-52.0); LYMPHOCYTES # (AUTO) 2.2 X10'3 (1.1-4.8); LYMPHOCYTES % (AUTO) 18.2 % (21-51); MEAN CORPUSCULAR HEMOGLOBIN 29.6 PG (27.0-31.0); MEAN CORPUSCULAR HGB CONC 33.8 g/dL (33.0-36.5); MEAN CORPUSCULAR VOLUME 87.5 FL (78-98); MEAN PLATELET VOLUME 9.5 FL (7.4-10.4); MONOCYTES # (AUTO) 1.1 X10'3 (0-0.9); MONOCYTES % (AUTO) 9.2 % (2-12); NEUTROPHILS # (AUTO) 8.6 X10'3 (1.8-7.7); NEUTROPHILS % (AUTO) 69.5 % (42-75); PLATELET COUNT 210 X10'3 (140-440); RED BLOOD COUNT 5.07 X10'6 (4.70-6.10); WHITE BLOOD COUNT 12.3 X10'3 (4.5-11.0)
[2022-06-13 06:37] LABS: ANION GAP 12 (8-16); BLOOD UREA NITROGEN 5 MG/DL (7-18); CALCIUM 8.8 MG/DL (8.5-10.1); CHLORIDE 99 MMOL/L (99-107); CREATININE 0.71 MG/DL (0.60-1.10); GLUCOSE 108 MG/DL (70-104); MAGNESIUM 1.9 MG/DL (1.5-2.4); PHOSPHORUS 3.5 MG/DL (2.3-4.5); POTASSIUM 3.4 MMOL/L (3.5-5.1); SODIUM 135 MMOL/L (135-145); eGFR > 90 ML/MIN
--- NOTE | 2022-06-13 06:38 | NUR ---
Problems reprioritized. Patient report given, questions answered & plan of care reviewed with JEFF Baires and JEFF Gamez.
--- NOTE | 2022-06-13 07:08 | NUR ---
Patient in room ORTHO 4024. I have received report from Yamileth AGUILAR and had the opportunity to ask questions and assume patient care.
[2022-06-13] MEDS: K and/or MAG REPLACEMENT MC SCH ×2 (08:00→19:32)
[2022-06-13] MEDS: heparin, porcine 5000 units/ml vial SQ SCH ×2 (08:38→19:45)
[2022-06-13] MEDS: docusate sod 100mg capsule PO SCH ×2 (08:39→19:42)
[2022-06-13] MEDS: nicotine 21mg patch - 24 hr TD SCH (08:40)
[2022-06-13] MEDS: potassium Cl 20 mEq SR tablet PO PRN ×3 (08:40→19:49)
[2022-06-13] MEDS: dextrose 5%-1/2 normal saline 1,000 ML IV SCH ×2 (09:05→18:27)
[2022-06-13 10:00] VITALS: BP 111/74
--- NOTE | 2022-06-13 10:55 | NUR ---
Initial: Pt admit for acute appendicitis. Per physician notes pt with sepsis secondary to ruptured appendix/appendicitis. Pt currently POD #5 s/p laparoscopic appendectomy, with a post-op ileus however now with return of bowel function with some diarrhea per physician notes. LBM 06/12. Diet has just been advanced to regular from clear liquids, pending first meal since diet advancement. Will continue to follow closely and monitor need for nutrition intervention pending trends in PO intake. Recommendations: 1) Continue regular diet 2) Monitor need for additional protein/ONS 3) Routine bowel care 4) Scaled wt this admit; subsequent weekly scaled weights Addendum: 06/13/22 at [address] Amended: Links added.
[2022-06-13] MEDS ORDERED: magnesium 4gm in 100ml NS 100 ML IV PRN (13:20)
[2022-06-13] MEDS ORDERED: potassium CL 10mEq/100ml bag 100 ML IV PRN (13:20)
[2022-06-13] MEDS ORDERED: magnesium 2GM in 50ml NS 50 ML IV PRN (13:20)
[2022-06-13] MEDS ORDERED: potassium Cl 20 mEq SR tablet PO PRN (13:20)
[2022-06-13] MEDS ORDERED: magnesium Cl slow-release 64mg tablet PO PRN (13:20)
--- NOTE | 2022-06-13 15:23 | NUR ---
Pt. 4024A Removed ROSALES drain from right lower abdomen per order from Dr. Mon, instructed to leave suture in place to be removed at follow up visit, site reinforced with sterile gauze pad and foam tape. Site was leaking minimal, serosanguineous more on the side of serous fluid, insertion site slightly irritated pink in color. Pt. tolerated procedure well, will continue to monitor.
--- NOTE | 2022-06-13 17:00 | NUR ---
Problems reprioritized. Patient report given, questions answered & plan of care reviewed with Yamileth AGUILAR.
[2022-06-13 18:00] VITALS: BP 151/89
--- NOTE | 2022-06-13 18:41 | NUR ---
Christie AGUILAR's charting reviewed and changed where needed. Report given to Yamileth AGUILAR
[2022-06-13 22:00] VITALS: BP 124/87
[2022-06-14] MEDS: piperacillin/tazo 3.375gm/50ml 50 ML IV SCH ×2 (00:09→10:49)
[2022-06-14] MEDS: dextrose 5%-1/2 normal saline 1,000 ML IV SCH ×2 (01:40→11:40)
[2022-06-14 06:00] VITALS: BP 113/87
--- NOTE | 2022-06-14 06:24 | NUR ---
Problems reprioritized. Patient report given, questions answered & plan of care reviewed with JEFF Shanks.
[2022-06-14 06:27] LABS: MAGNESIUM 1.8 MG/DL (1.5-2.4); PHOSPHORUS 4.3 MG/DL (2.3-4.5)
--- NOTE | 2022-06-14 07:00 | NUR ---
Patient in room ORTHO 4024. I have received report from JEFF Carson and had the opportunity to ask questions and assume patient care.
[2022-06-14 08:58] LABS: BASOPHILS # (AUTO) 0.1 X10'3 (0-0.2); BASOPHILS % (AUTO) 0.6 % (0-1); EOSINOPHILS # (AUTO) 0.5 X10'3 (0-0.9); EOSINOPHILS % (AUTO) 4.2 % (0-6); HEMATOCRIT 44.8 % (42.0-52.0); HEMOGLOBIN 14.8 g/dl (14.0-17.9); LYMPHOCYTES # (AUTO) 2.3 X10'3 (1.1-4.8); LYMPHOCYTES % (AUTO) 18.5 % (21-51); MEAN CORPUSCULAR HEMOGLOBIN 28.9 PG (27.0-31.0); MEAN CORPUSCULAR VOLUME 87.4 FL (78-98); MEAN PLATELET VOLUME 8.8 FL (7.4-10.4); MONOCYTES % (AUTO) 7.8 % (2-12); NEUTROPHILS # (AUTO) 8.6 X10'3 (1.8-7.7); NEUTROPHILS % (AUTO) 68.9 % (42-75); PLATELET COUNT 234 X10'3 (140-440); RED BLOOD COUNT 5.12 X10'6 (4.70-6.10); RED CELL DISTRIBUTION WIDTH 14.2 % (11.5-14.5); WHITE BLOOD COUNT 12.4 X10'3 (4.5-11.0)
[2022-06-14 09:27] LABS: ALANINE AMINOTRANSFERASE 16 U/L (12-78); ALBUMIN 2.9 G/DL (3.4-5.0); ALBUMIN/GLOBULIN RATIO 0.9 (1.1-1.5); ALKALINE PHOSPHATASE 56 IU/L (46-116); ANION GAP 10 (8-16); ASPARTATE AMINO TRANSFERASE 21 U/L (10-37); BILIRUBIN,TOTAL 0.6 MG/DL (0.1-1.0); BLOOD UREA NITROGEN 4 MG/DL (7-18); BUN/CREATININE RATIO 5.2 (5.4-32.0); CALCIUM 8.6 MG/DL (8.5-10.1); CHLORIDE 102 MMOL/L (99-107); CREATININE 0.77 MG/DL (0.60-1.10); GLUCOSE 125 MG/DL (70-104); POTASSIUM 3.3 MMOL/L (3.5-5.1); SODIUM 137 MMOL/L (135-145); TOTAL CARBON DIOXIDE 25.3 MMOL/L (24-32); TOTAL PROTEIN 6.2 G/DL (6.4-8.2); eGFR > 90 ML/MIN
[2022-06-14 10:00] VITALS: BP 124/83
[2022-06-14] MEDS: K and/or MAG REPLACEMENT MC SCH (10:44)
[2022-06-14] MEDS: potassium Cl 20 mEq SR tablet PO PRN ×2 (10:49→16:53)
[2022-06-14] MEDS: heparin, porcine 5000 units/ml vial SQ SCH (10:49)
[2022-06-14] MEDS: docusate sod 100mg capsule PO SCH (10:50)
[2022-06-14] MEDS: nicotine 21mg patch - 24 hr TD SCH (10:51)
[2022-06-14] MEDS ORDERED: HYDR-3965 PO (12:04)
[2022-06-14] MEDS ORDERED: AMOX-580 PO (12:04)
[2022-06-14] MEDS ORDERED: LACT1CAP26 PO (12:04)
--- NOTE | 2022-06-14 17:10 | NUR ---
DC inst provided to pt & pt's step-mom. IV DC'd, tip intact. All belongings sent w/pt. Pt ambulated to vehicle.
== END 2022-06-14 17:15 | disposition home health service (06) | DRG 710 ==
LOC: ER 12:28 → ED HOLD 15:42 → ORTHO 4S 22:22
PROVIDERS: ADMIT Internal Medicine; ATTEND Internal Medicine
PROC: 0DTJ4ZZ Resection of Appendix, Percutaneous Endoscopic Approach (ICD-10-PCS; principal; 2022-06-08 19:59)
DX: A41.9 Sepsis, unspecified organism (principal); N17.9 Acute kidney failure, unspecified; K35.32 Acute appendicitis with perforation, localized peritonitis, and gangrene, without abscess; K56.7 Ileus, unspecified; K66.0 Peritoneal adhesions (postprocedural) (postinfection); E87.6 Hypokalemia; Z20.822 Contact with and (suspected) exposure to COVID-19; N39.0 Urinary tract infection, site not specified; F17.210 Nicotine dependence, cigarettes, uncomplicated; F32.A Depression, unspecified; K21.9 Gastro-esophageal reflux disease without esophagitis; R41.3 Other amnesia; M54.50 Low back pain, unspecified; Z87.820 Personal history of traumatic brain injury; Z79.899 Other long term (current) drug therapy; Z71.6 Tobacco abuse counseling
CPT/HCPCS: 36415; 74176; 80048; 80053; 81001; 83690; 83735; 83880; 84100; 84145; 85025; 87077; 87081; 87088; 87186; 87811; 93005; 96374; 99285; A4215; A4314; A4615; A4618; A6402; A6449; A7000; G0378; J0694; J1100; J1644; J2175; J2270; J2370; J2405; J2543; J2704; J2765; J3010; J3480; J3490; J7030; J7042; J7120; J7121; P9045

== ENCOUNTER 2022-11-26 16:53 | Emergency (ER) | payer MEDICAID ==
[~2022-11-26] VITALS: Ht 185.4 cm; Wt 81.8 kg
[~2022-11-26 16:53] MED LIST changes: -ATOR20TA66 PO; +CHOL500049 PO; +DONE-46 PO; +LACT1CAP26 PO; -OMEP20CA16 PO
[2022-11-26 17:52] LABS: ALANINE AMINOTRANSFERASE 19 U/L (12-78); ALBUMIN 4.5 G/DL (3.4-5.0); ALBUMIN/GLOBULIN RATIO 1.4 (1.1-1.5); ALKALINE PHOSPHATASE 115 IU/L (46-116); ANION GAP 16 (8-16); ASPARTATE AMINO TRANSFERASE 37 U/L (10-37); BILIRUBIN,TOTAL 0.6 MG/DL (0.1-1.0); BLOOD UREA NITROGEN 8 MG/DL (7-18); BUN/CREATININE RATIO 11.6 (5.4-32.0); CALCIUM 9.4 MG/DL (8.5-10.1); CHLORIDE 103 MMOL/L (99-107); CREATININE 0.69 MG/DL (0.60-1.10); ETHANOL 0.231 GM/DL (0.0-0.010); GLUCOSE 95 MG/DL (70-104); POTASSIUM 3.2 MMOL/L (3.5-5.1); SODIUM 143 MMOL/L (135-145); TOTAL CARBON DIOXIDE 24.5 MMOL/L (24-32); TOTAL PROTEIN 7.8 G/DL (6.4-8.2); eGFR > 90 ML/MIN
[2022-11-26 18:00] LABS: BASOPHILS # (AUTO) 0.1 X10'3 (0-0.2); EOSINOPHILS % (AUTO) 0.6 % (0-6); HEMATOCRIT 51.7 % (42.0-52.0); HEMOGLOBIN 17.1 g/dl (14.0-17.9); LYMPHOCYTES # (AUTO) 2.2 X10'3 (1.1-4.8); LYMPHOCYTES % (AUTO) 28.9 % (21-51); MEAN CORPUSCULAR HEMOGLOBIN 29.4 PG (27.0-31.0); MEAN CORPUSCULAR HGB CONC 33.1 g/dL (33.0-36.5); MONOCYTES # (AUTO) 0.8 X10'3 (0-0.9); MONOCYTES % (AUTO) 11.3 % (2-12); NEUTROPHILS # (AUTO) 4.4 X10'3 (1.8-7.7); NEUTROPHILS % (AUTO) 58.2 % (42-75); PLATELET COUNT 239 X10'3 (140-440); RED CELL DISTRIBUTION WIDTH 15.4 % (11.5-14.5); WHITE BLOOD COUNT 7.5 X10'3 (4.5-11.0)
[2022-11-26] MEDS ORDERED: normal saline 1000ml 1,000 ML IV ONE (21:05)
[2022-11-26] MEDS ORDERED: POTASSIUM BICARB 20meq eff tab 20 MEQ TABLET.EFF PO STA (23:37)
[2022-11-26] MEDS ORDERED: haloperidol lactate 5mg/ml inj IM PRN (23:40)
--- NOTE | 2022-11-27 00:28 | NUR ---
Pt is going to be moved to overflow. Pt updated on that.
--- NOTE | 2022-11-27 00:36 | NUR ---
BREAKING PRIMARY RN, NEW PATIENT TO BED #20 PRIMARY RN AWARE OF PATIENT NO OBSERVABLE S/S OF ACUTE STRESS AT THIS TIME PROVIDED PATIENT WATER PATIENT PROVIDED STAFF A URINE SAMPLE FOR LAB ORDER BY PROVIDER
[2022-11-27 00:47] LABS: CLARITY,URINE SLIGHTLY CLOUDY (Clear); COLOR,URINE YELLOW (Yellow); GLUCOSE, URINE NEGATIVE (Neg); KETONES,URINE TRACE mg/dl (Neg); LEUKOCYTE ESTERASE ,URINE NEGATIVE (Neg); NITRITES, URINE NEGATIVE (Neg); OCCULT BLOOD,URINE MODERATE (Neg); PH,URINE 5.5 (4.8-8.0); PROTEIN,URINE TRACE mg/dl (Neg); UROBILINOGEN,URINE 0.2 E.U/dL (0.2-1.0)
[2022-11-27 00:50] LABS: UA COLLECTION TYPE CLN CATCH MIDSTREAM
[2022-11-27 00:51] LABS: MUCUS STRANDS MANY /LPF (Neg)
[2022-11-27 00:52] LABS: SQUAMOUS EPITHELIAL CELL,UR FEW /LPF (FEW)
[2022-11-27 00:53] LABS: BACTERIA,URINE FEW /HPF (Neg)
[2022-11-27 01:03] LABS: URINE AMPHETAMINE SCREEN NEGATIVE (Neg); URINE BARBITUATE SCREEN NEGATIVE (Neg); URINE BENZODIAZEPINES SCREEN NEGATIVE (Neg); URINE CANNABINOID SCREEN NEGATIVE (Neg); URINE COCAINE SCREEN NEGATIVE (Neg); URINE METHADONE SCREEN NEGATIVE (Neg); URINE OPIATE SCREEN NEGATIVE (Neg); URINE PHENCYCLIDINE SCREEN NEGATIVE (Neg)
--- NOTE | 2022-11-27 01:35 | NUR ---
Patient sitting up in bed. States that he is confused. "What do I need to do now? I'm confused." Reassured patient that he is safe and that he can go to sleep. Made him aware that we are keeping him safe for now until his family can resume care for him.
[2022-11-27] MEDS ORDERED: NO HOME MEDS (02:05)
--- NOTE | 2022-11-27 03:41 | NUR ---
Patient is currently sleeping, has been asleep for an hour. RR even/nonlabored. No s/sx of distress noted.
--- NOTE | 2022-11-27 05:25 | NUR ---
Patient is currently resting with eyes closed, has tossed and turned the last hour. Snoring noted. RR even/nonlabored. No s/sx of distress noted.
--- NOTE | 2022-11-27 07:30 | NUR ---
Client is resting in bed. Resp are even and unlabored.
[2022-11-27] MEDS: multivitamins, therapeutics tablet PO SCH (08:00)
[2022-11-27] MEDS: thiamine 100mg tablet PO SCH (08:00)
[2022-11-27] MEDS: folic acid 1mg tablet PO SCH (08:00)
--- NOTE | 2022-11-27 08:07 | NUR ---
breaking primary RN, pt in bed lying onhis side, eating, in no apparent distress
--- NOTE | 2022-11-27 08:30 | NUR ---
Patient is awake and wondering why he's here. Explained that his caregivers are in the hospital, and we will take care of him until his family can resume caring for him. He seems to be ok with answer.
--- NOTE | 2022-11-27 09:16 | NUR ---
Patient asleep on his right side. Breathing regular. No s/sx of distress.
--- NOTE | 2022-11-27 10:34 | NUR ---
Patient resting on his bed in supine position. Denies needs at this time.
--- NOTE | 2022-11-27 10:42 | NUR ---
Patient speaking to [facility].
--- NOTE | 2022-11-27 12:14 | NUR ---
Patient sitting on the side of his bed eating his lunch meal.
--- NOTE | 2022-11-27 13:36 | NUR ---
Patient up to the bathroom, then back to bed. Provided the requested cup of coffee.
--- NOTE | 2022-11-27 14:05 | NUR ---
Pt resting supine. RR even and unlabored.
--- NOTE | 2022-11-27 14:56 | NUR ---
Patient reports that he wants to leave. Explained that if he does, he will probably end up being brought back, since there is nobody to care for him, as long as his parents are in the hospital.
--- NOTE | 2022-11-27 16:54 | NUR ---
Patient continues to want to leave.
[2022-11-27] MEDS: LORazepam 1 MG tablet PO PRN (17:41)
--- NOTE | 2022-11-27 17:56 | NUR ---
Patient is eating dinner on the side of his bed. He denies needs.
--- NOTE | 2022-11-27 18:44 | NUR ---
pt ambulated to the bathroom, walked around unit, tried to go past the curtain, and was directed back to his "room" states he is "bored" was given a book to read
--- NOTE | 2022-11-27 19:37 | NUR ---
pt is laying down in bed looking at staff, no needs at this time
--- NOTE | 2022-11-27 21:27 | NUR ---
pt ambulated to the bathroom ,no current needs, calm
--- NOTE | 2022-11-27 22:26 | NUR ---
pt is supine in bed, sleeping, breathing regular, no needs
--- NOTE | 2022-11-27 23:32 | NUR ---
pt is supine in bed, quietly snoring, rr breathing and no acute distress noted
--- NOTE | 2022-11-28 00:30 | NUR ---
pt is laying on his right side, eyes closed, regular breathing present, sleeping, no s/s of agitation present
--- NOTE | 2022-11-28 01:30 | NUR ---
pt is snoring, sleeping supine, regular breathing, no s/s of distress noted
--- NOTE | 2022-11-28 02:30 | NUR ---
pt is sleeping, regular breathing observed
--- NOTE | 2022-11-28 03:35 | NUR ---
pt is laying on his left side, sleeping, regular breathing present
--- NOTE | 2022-11-28 04:31 | NUR ---
pt is supine in bed. sleeping, no agitation observed
--- NOTE | 2022-11-28 05:27 | NUR ---
pt is supine in bed, sleeping on his right side, lightly snoring, no s/s of agitation
--- NOTE | 2022-11-28 06:36 | NUR ---
Patient is sitting quietly in bed.
--- NOTE | 2022-11-28 07:16 | NUR ---
Received Pt awake and sitting on his bed. Pt up to bathroom and returned to bed and fell asleep.
[2022-11-28] MEDS ORDERED: LORazepam 2 mg/ml vial IM ONE (09:10)
[2022-11-28] MEDS ORDERED: haloperidol lactate 5mg/ml inj IM ONE (09:10)
[2022-11-28] MEDS: multivitamins, therapeutics tablet PO SCH (09:33)
[2022-11-28] MEDS: thiamine 100mg tablet PO SCH (09:33)
[2022-11-28] MEDS: folic acid 1mg tablet PO SCH (09:33)
--- NOTE | 2022-11-28 09:40 | NUR ---
Pt has been wanting to leave unit and go home. "I can't stay here. nobody is telling me anything. I have to go take care of my animals". Situation explained to Pt. He attempte dto leave the unit and returned when security showed and asked him to come back. Pt became increasingly agitated and was given IM Haldol and Ativan per and 9 written.
--- NOTE | 2022-11-28 10:21 | NUR ---
Patient is resting comfortably. Regular breathing with no signs of distress.
--- NOTE | 2022-11-28 11:27 | NUR ---
Pt in bed sleeping w/o distress at this time.
--- NOTE | 2022-11-28 13:30 | NUR ---
Pt in bed sleeping w/o distress.
--- NOTE | 2022-11-28 15:25 | NUR ---
Pt woke and sat on the side of his bed for while. Pt denied any needs at this time.
--- NOTE | 2022-11-28 17:27 | NUR ---
Pt returned to laying down in bed and appears to be sleeping w/o distress at this time.
--- NOTE | 2022-11-28 18:40 | NUR ---
Assumed care from JEFF Harden
--- NOTE | 2022-11-28 18:40 | NUR ---
Patient is sitting upright on bed, he is eating his dinner. Patient is aware of surroundings and place. This conventional underwriter asked patient how he is doing? The patient replied "as good as I can, being stuck in here!" Patient exhibits frustration.
--- NOTE | 2022-11-28 19:38 | NUR ---
Patient is now sleeping on his right side. In view from nurses station.
--- NOTE | 2022-11-28 20:01 | NUR ---
The patient is resting quietly now. He is resistand to answering questions. He told this story writer to look things up in the records. He exhibits anger when any questions are asked. At this time the patient is sleeping quietly on his right side.
--- NOTE | 2022-11-28 21:59 | NUR ---
Patient is sleeping with his knees flexed, supine position.
[2022-11-28] MEDS ORDERED: LORazepam 1 MG tablet PO ONE (23:05)
--- NOTE | 2022-11-28 23:05 | NUR ---
Patient is awake and very labile. States he can't sleep. Doesn't understand why he can't leave. Patient threatens staff. Patient was given ice water, he denies a sandwich. Patient is advised he will be given Ativan 2 mg PO. Awaiting medications.
[2022-11-28] MEDS: LORazepam 1 MG tablet PO PRN (23:12)
--- NOTE | 2022-11-28 23:52 | NUR ---
Patient is much improved since Ativan 2 mg PO. He exhibits polite behavior. He was given a turkey sandwich and skim milk. In addition warm blankets were supplied. Patient is in view from nurses station. Frequent rounding for patient safety.
--- NOTE | 2022-11-29 00:18 | NUR ---
Patient is now sleeping quietly, no distress.
--- NOTE | 2022-11-29 01:40 | NUR ---
PT SLEEPING ON RIGHT SIDE, NO APPARENT DISTRESS
--- NOTE | 2022-11-29 02:47 | NUR ---
Patient awoke and ambulated to bathroom, then back to bed.
[2022-11-29] MEDS: LORazepam 1 MG tablet PO PRN ×2 (02:53→16:47)
--- NOTE | 2022-11-29 02:54 | NUR ---
Patient once again states "this ain't cutting it." He was given Ativan 2mg PO. It was explained that this is what he recieved earlier and it helped him relax. The patient was compliant with taking this medication.
--- NOTE | 2022-11-29 03:47 | NUR ---
Patient sleeps quietly in a supine position.
[2022-11-29] MEDS: haloperidol 5mg tablet PO PRN ×2 (04:13→17:30)
--- NOTE | 2022-11-29 04:15 | NUR ---
Patient is awake, he complains of anxiety. Haldol 5mg given PO.
--- NOTE | 2022-11-29 05:02 | NUR ---
Patient is sleeping on his right side. No distress.
--- NOTE | 2022-11-29 05:59 | NUR ---
Patient is sleeping quietly on his right side.
--- NOTE | 2022-11-29 07:02 | NUR ---
Pt sleeping comfortably on left side, rr even and unlabored.
--- NOTE | 2022-11-29 09:02 | NUR ---
Pt sleeping comfortably. Pt was compliant with his medication. Pt woke and ate 100% of his breakfast. No report of agitation or anxiety. Pt denies ETOH withdrawal, no observable symptoms.
[2022-11-29] MEDS: thiamine 100mg tablet PO SCH (09:37)
[2022-11-29] MEDS: multivitamins, therapeutics tablet PO SCH (09:37)
[2022-11-29] MEDS: folic acid 1mg tablet PO SCH (09:37)
--- NOTE | 2022-11-29 11:09 | NUR ---
Pt continues to rest comfortably, rr even and unlabored.
--- NOTE | 2022-11-29 13:05 | NUR ---
Pt continues to rest comfortably, rr even and unlabored. Lunch tray at bedside, states he "will eat later."
--- NOTE | 2022-11-29 15:05 | NUR ---
Pt woke ate his lunch, then laid back down to sleep. Pt has no requests at this time.
--- NOTE | 2022-11-29 16:52 | NUR ---
Patient woke up restless stating "I need to talk to someone that knows what's going on." Assembler Engine explained he was on a 179 hold because the doctor didn't feel he was safe going to [place] by himself. Pt lives with parents and has a memory problem r/t TBI. Both parents are currently hospitalized for unknown reasons to verse writer. Pt bluntly stated "I don't even know if my parents are still alive." Pt is showing some increased agitation. Assembler Engine offered him PRN medication because he was extremely edgey with NOC shift. Pt said "you better give me something to knock me out because I don't want to be like that either." Pt was administered PRN Ativan 2mg. Will continue to monitor if PRN Haldol will be needed.
--- NOTE | 2022-11-29 17:39 | NUR ---
Pt administered additional PRN Haldol 5 mg po. Medical Assistant Per Diem sat and talked with patient. Pt presents with linear conversation, frustrated that he can't go home. Pt verbalized he is bored. T.V given to patient which seemed to apease patient.
--- NOTE | 2022-11-29 18:12 | NUR ---
Patient sitting up watching T.V and eating dinner. Behavior appropriate.
--- NOTE | 2022-11-29 18:30 | NUR ---
PT MOVED TO MAIN ER ROOM 17 PT TOLERATED MOVE WITH MANY QUESTIONS. PT AGGITATED WITH MOVE, AFTER A FEW MIN OF TALKING TO PT AGGRAVATION RESOLVED
--- NOTE | 2022-11-29 23:31 | NUR ---
PT AGGITATED. PT QUESTIONING WHY HE IS HERE AND WHATS GOING ON. PT REQUESTING TO LEAVE. PT EDUCATED ON WHY HE IS HERE. PT HAS CONCERN ABOUT ANIMALS LEFT AT HOME. [facility] CALLED AND REPORT FILED FOR A WELL ANIMAL CHECK. DOG AND CAT @ [address] [place] [address] BACK SLIDEING DOOR UNLOCKED
--- NOTE | 2022-11-30 00:56 | NUR ---
PT MOVED TO ROOM 10. PT UPDATED ON PLAN OF CARE. PT STATED WHATEVER ILL FORGET ANYWYS.
--- NOTE | 2022-11-30 06:30 | NUR ---
Patient recently brought over from the main ED. Patient is now laying on his left side with his eyes closed. No distress observed. Continue to monitor.
--- NOTE | 2022-11-30 07:53 | NUR ---
Patient eating breakfast. No distress observed. Continue to monitor.
[2022-11-30] MEDS: thiamine 100mg tablet PO SCH (08:55)
[2022-11-30] MEDS: multivitamins, therapeutics tablet PO SCH (08:55)
[2022-11-30] MEDS: folic acid 1mg tablet PO SCH (08:55)
--- NOTE | 2022-11-30 09:20 | NUR ---
Patient sleeping on right side. No distress observed. Continue to monitor.
--- NOTE | 2022-11-30 11:11 | NUR ---
Patient ambulatory to BR, steady gait. No distress observed. Continue to monitor.
--- NOTE | 2022-11-30 12:09 | NUR ---
Patient eating lunch. No distress observed. Continue to monitor.
--- NOTE | 2022-11-30 14:03 | NUR ---
Patient awake and reclining in bed. No distress observed. Continue to monitor.
--- NOTE | 2022-11-30 16:20 | NUR ---
Hui, Executive Talent Acquisition Consultant, speaking with patient. Patient was given his phone to contact family who might be able to take care of him. Per outreach and education social worker, sister cannot take care of patient. Patient is calm and speaking on his phone. No distress observed. Continue to monitor.
--- NOTE | 2022-11-30 18:53 | NUR ---
The patient was sitting up and eating his dinner at change of shift. He is very pleasant. He ate 100% of his dinner. He stated he was here "because I have memory issues" He is unable to recall what he did in the morning. He did know he was at [facility] but did not know the season or year. He stated the year was 2002 but was unsure. He denies pain. He ambulates to the bathroom independently.
--- NOTE | 2022-11-30 20:30 | NUR ---
The patient is pleasantly confused. He is currently watching a movie on TV
--- NOTE | 2022-11-30 22:14 | NUR ---
The patient is resting on his bed
--- NOTE | 2022-11-30 23:56 | NUR ---
The patient was sitting up in a chair and working on puzzles. He just now went to lay down on his bed.
--- NOTE | 2022-12-01 01:40 | NUR ---
The patient appears to be sleeping
--- NOTE | 2022-12-01 02:40 | NUR ---
The patient has been awake off and on. Currently is resting on his bed and his eyes are closed.
--- NOTE | 2022-12-01 05:01 | NUR ---
The patient has been awake for the majority of the night and only sleeping in small intervals. Dr. Panchal made aware and orders received.
--- NOTE | 2022-12-01 06:35 | NUR ---
Patient reclining in bed and awake. No distress observed. Continue to monitor.
--- NOTE | 2022-12-01 08:10 | NUR ---
Patient eating breakfast. No distress observed. Continue to monitor.
[2022-12-01] MEDS: thiamine 100mg tablet PO SCH (08:44)
[2022-12-01] MEDS: multivitamins, therapeutics tablet PO SCH (08:44)
[2022-12-01] MEDS: folic acid 1mg tablet PO SCH (08:44)
--- NOTE | 2022-12-01 09:55 | NUR ---
Patient reclining in bed and watching T.V. No distress observed. Continue to monitor.
--- NOTE | 2022-12-01 10:57 | NUR ---
Third time today patient asks why he is here. RN again explained his caregivers are hospitalized and patient is here until they are able to take care of him. Patient got upset because he thought RN was rude. RN does not believe she was rude but RN was talking to [facility] at the time he came up to ask. RN to write out why he is here so patient has the information in front of him. Continue to monitor.
--- NOTE | 2022-12-01 12:12 | NUR ---
Patient eating lunch. No distress observed. Continue to monitor.
--- NOTE | 2022-12-01 13:30 | NUR ---
Patient reclining in bed watching T.V. No distress observed. Continue to monitor.
--- NOTE | 2022-12-01 15:19 | NUR ---
Patient asleep with the T.V. on. No distress observed. Continue to monitor.
--- NOTE | 2022-12-01 17:42 | NUR ---
Patient watching T.V. No distress observed. Continue to monitor.
--- NOTE | 2022-12-01 18:30 | NUR ---
Patient resting in bed at this time, forgetful. Doesn't know why he's here. Reoriented him. Told him I'd call to check on his parents and let him know what I find out. No pain noted. No needs voiced. No s/sx of distress noted. Will continue to monitor.
[2022-12-01] MEDS: traZODone 50mg tablet PO SCH (20:11)
--- NOTE | 2022-12-01 20:30 | NUR ---
Patient resting in bed watching TV. Compliant with HS meds. Refilled his water pitcher.
--- NOTE | 2022-12-01 22:50 | NUR ---
Patient snoring and asleep. Appears to be comfortable. RR even/nonlabored. No s/sx of distress noted.
--- NOTE | 2022-12-01 22:55 | NUR ---
Patient sleeping, snoring noted. RR even/nonlabored. No s/sx of distress noted.
--- NOTE | 2022-12-02 | NUR ---
Patient tossing and turning from peer screaming nearby. Will continue to monitor.
--- NOTE | 2022-12-02 01:00 | NUR ---
Patient able to fall back asleep after noise disturbance from peer in overflow area. Will continue to monitor.
--- NOTE | 2022-12-02 03:15 | NUR ---
Patient sleeping, call made to [facility] to check on patient's caregivers (step-mom and dad) as to give patient update on their status. RN was made aware they are stable and will be going to a SNF for rehab. Aram who was caring for patient's dad was admitted with AMS/Dementia. Rosie AGUILAR reported that neither step-mom or dad can take care of themselves. Will be in contact with rn social work to make aware of patient's home situation to make arrangements for patient.
--- NOTE | 2022-12-02 05:10 | NUR ---
Patient snoring, RR even/nonlabored. No distress noted. Up to BR x 4 times this shift.
--- NOTE | 2022-12-02 06:23 | NUR ---
Paged Senior Strategy Manager to notify of change in living situation. Dayshift nurse updated of status.
--- NOTE | 2022-12-02 06:40 | NUR ---
Patient awake and reclining in bed due to another patient screaming. Continue to monitor.
--- NOTE | 2022-12-02 08:20 | NUR ---
Patient sitting up and eating his breakfast. No distress observed. Continue to monitor.
[2022-12-02] MEDS: folic acid 1mg tablet PO SCH (08:53)
[2022-12-02] MEDS: multivitamins, therapeutics tablet PO SCH (08:53)
[2022-12-02] MEDS: thiamine 100mg tablet PO SCH (08:53)
--- NOTE | 2022-12-02 10:11 | NUR ---
Patient sleeping supine. No distress observed. Continue to monitor.
--- NOTE | 2022-12-02 12:22 | NUR ---
Patient eating lunch. No distress observed. Continue to monitor.
--- NOTE | 2022-12-02 14:19 | NUR ---
Patient still sleeping. No distress observed. Continue to monitor.
--- NOTE | 2022-12-02 19:03 | NUR ---
Patient ate a full dinner. He is watching television. No distress at this time. In view from nurses station.
--- NOTE | 2022-12-02 19:08 | NUR ---
Note simeon in EDM - 12/02/22 at 1913 by MERY Patient interviewed at bedside. Patient is alert. He exhibits rapid speech. Patient exhibits paranoia, he describes hearing voices telling him "you're no good." Possible H/I, patient states he is going to take care of those who are no good. The patient denies S/I. The plan is to transfer this patient to [facility] this evening around 2100. The patient is cooperative with staff at this time. He did eat a full dinner.
--- NOTE | 2022-12-02 19:43 | NUR ---
Patient continues to watch television. No distress noted.
[2022-12-02] MEDS: traZODone 50mg tablet PO SCH (19:52)
[2022-12-02] MEDS ORDERED: traZODone 50mg tablet PO ONE (21:45)
[2022-12-02] MEDS ORDERED: LORazepam 1 MG tablet PO ONE (21:45)
--- NOTE | 2022-12-02 21:47 | NUR ---
Patient is cooperative, he states anxiety is present and he can't sleep. This headline writer talked to ED provider. Ativan 1 mg and a repeat Trazadone 50 mg will be given PO.
--- NOTE | 2022-12-02 22:47 | NUR ---
Received patient from Mario AGUILAR. Pt lying in bed watching TV in no apparent distress. Received PRN Trazodone and Ativan, continues to lay awake.
--- NOTE | 2022-12-03 00:47 | NUR ---
Pt appears to be sleeping in no distress. Laying on right side.
--- NOTE | 2022-12-03 01:54 | NUR ---
Pt lying on back. Sleeping, in no apparent distress.
--- NOTE | 2022-12-03 03:29 | NUR ---
Pt lying on right side, appears to be sleeping. In no apparent distress.
--- NOTE | 2022-12-03 05:09 | NUR ---
Pt up to restroom. In no apparent distress. Back to bed laying supine.
--- NOTE | 2022-12-03 05:57 | NUR ---
Pt lying supine, awake. In no apparent distress.
--- NOTE | 2022-12-03 06:30 | NUR ---
Pt is awake sitting quietly in bed.
[2022-12-03] MEDS: multivitamins, therapeutics tablet PO SCH (08:14)
[2022-12-03] MEDS: thiamine 100mg tablet PO SCH (08:14)
[2022-12-03] MEDS: folic acid 1mg tablet PO SCH (08:14)
--- NOTE | 2022-12-03 08:18 | NUR ---
Pt is eating breakfast.
--- NOTE | 2022-12-03 10:16 | NUR ---
Pt is lying in bed on his back, he appears to be sleeping.
--- NOTE | 2022-12-03 11:48 | NUR ---
Pt is lying in bed on his back loudly snoring.
--- NOTE | 2022-12-03 12:08 | NUR ---
Pt is awake, sitting on the side of the bed eating his lunch.
--- NOTE | 2022-12-03 14:06 | NUR ---
Pt is lying quietly in bed.
--- NOTE | 2022-12-03 16:06 | NUR ---
Pt is lying in bed watching TV and asking for a snack.
--- NOTE | 2022-12-03 16:15 | NUR ---
Pt was provided with a snack.
[2022-12-03] MEDS: traZODone 50mg tablet PO SCH (19:27)
--- NOTE | 2022-12-03 21:32 | NUR ---
Francisco simeon in [facility] - 12/03/22 at 2134 by MERY Patient is still refusing medications, all medications were wasted. The patient is giving herself a sponge bath. The patient is less labile at this time.
--- NOTE | 2022-12-03 21:34 | NUR ---
Patient is resting quietly and watching television.
[2022-12-04] MEDS ORDERED: LORazepam 1 MG tablet PO ONE (01:30)
--- NOTE | 2022-12-04 01:49 | NUR ---
Patient unable to sleep. This justowriter operator spok with ER . PO Ativan 1 mg given PO.
--- NOTE | 2022-12-04 03:06 | NUR ---
Patient is awake now, states he can't sleep. No distress.
[2022-12-04] MEDS ORDERED: diphenhydrAMINE 25mg capsule PO ONE (03:20)
--- NOTE | 2022-12-04 03:21 | NUR ---
ED MD was advised, patient not sleeping. Benadryl will be administered.
--- NOTE | 2022-12-04 04:44 | NUR ---
This patient is awake and he continues to try and sleep.
--- NOTE | 2022-12-04 06:45 | NUR ---
Patient sleeping on his left side. RR even and unlabored. No s/sx of distress.
--- NOTE | 2022-12-04 08:15 | NUR ---
Patient sitting on the side of his bed eating his breakfast. Denies needs.
[2022-12-04] MEDS: multivitamins, therapeutics tablet PO SCH (09:54)
[2022-12-04] MEDS: thiamine 100mg tablet PO SCH (09:54)
[2022-12-04] MEDS: folic acid 1mg tablet PO SCH (09:54)
--- NOTE | 2022-12-04 13:47 | NUR ---
pt resting in bed watching tv, nad.
--- NOTE | 2022-12-04 16:01 | NUR ---
Patient continues to lie on his bed watching TV. Denies needs.
--- NOTE | 2022-12-04 17:14 | NUR ---
Patient got up the bathroom, then came back and continues to watch TV.
[2022-12-04] MEDS ORDERED: quetiapine 100mg tablet PO ONE (18:55)
--- NOTE | 2022-12-04 19:20 | NUR ---
Patient ate a full dinner. No distress. Patient tells this engineering technical writer he continues to have problems sleeping.
[2022-12-04] MEDS: traZODone 50mg tablet PO SCH (19:56)
--- NOTE | 2022-12-04 20:00 | NUR ---
Patient is resting quietly in bed. He watches television.
--- NOTE | 2022-12-04 20:39 | NUR ---
Patient is medication compliant. He continues to watch television.
--- NOTE | 2022-12-04 22:16 | NUR ---
Patient is now sleeping quietly, No distress.
--- NOTE | 2022-12-05 00:39 | NUR ---
Patient awoke, he ambulated to the bathroom. Patient voided and returned to bed.
--- NOTE | 2022-12-05 02:03 | NUR ---
Patient was up to the bathroom to void. He then returned to bed and sleep.
--- NOTE | 2022-12-05 04:27 | NUR ---
Patient is sleeping quietly, no distress.
--- NOTE | 2022-12-05 05:11 | NUR ---
Patient is sleeping well on his right side.
--- NOTE | 2022-12-05 07:00 | NUR ---
Pt sleeping comfortably. No current concerns.
[2022-12-05] MEDS: multivitamins, therapeutics tablet PO SCH (07:56)
[2022-12-05] MEDS: thiamine 100mg tablet PO SCH (07:56)
[2022-12-05] MEDS: folic acid 1mg tablet PO SCH (07:56)
--- NOTE | 2022-12-05 08:00 | NUR ---
Pt awake for breakfast, pleasant at this time. Meds given
--- NOTE | 2022-12-05 09:00 | NUR ---
pt sleeping comfortably at this time.
--- NOTE | 2022-12-05 10:33 | NUR ---
Pt in and out of sleep, pt asked for head of the bed to be raised and forgot that he had ate breakfast this morning.
--- NOTE | 2022-12-05 11:57 | NUR ---
Pt sleeping comfortably at this time/no signs of distress
--- NOTE | 2022-12-05 13:47 | NUR ---
Pt doing well, no current needs. Pt ate lunch, went to restroom and is now laying awake in bed.
--- NOTE | 2022-12-05 15:09 | NUR ---
Pt sleeping comfortably. No current signs of distress.
--- NOTE | 2022-12-05 16:44 | NUR ---
Pt sleeping comfortably in bed. No current signs of distress or any new concerns at this time.
--- NOTE | 2022-12-05 18:10 | NUR ---
Pt awake eating, pleasant. Has obvious short term memory when asked if he had a BM today he does not remember. Pt pleasant and no new needs at this time.
--- NOTE | 2022-12-05 18:57 | NUR ---
Assumed care of patient from danni dunlap. pt appears to be sleeping comfortably on right side. pts rr 12, even, and unlabored. pt has no needs at this time. will continue with plan of care.
--- NOTE | 2022-12-05 19:59 | NUR ---
Patient moved from overflow room 20 to ER main room 12. Report given to Angela AGUILAR
--- NOTE | 2022-12-05 20:22 | NUR ---
offered pt an extra dinner tray. Oriented pt on the main ED floor
--- NOTE | 2022-12-05 21:09 | NUR ---
Pt is sitting by side of bed, c/o being bored. RN sat down with pt and chatted with him. His parents are in and out of the hospital right now that's why he is at ED. Pt cannot recall if he has ever had DT, but he thinks he doesn't drink enough ETOH to get DT.
[2022-12-05] MEDS: traZODone 50mg tablet PO SCH (21:21)
--- NOTE | 2022-12-05 22:30 | NUR ---
RN provided warm blanket to pt, pt stated he is not sleepy yet. reminded him why he is here since he has problem with short term memory.
--- NOTE | 2022-12-05 23:45 | NUR ---
Pt is asleep
--- NOTE | 2022-12-06 00:17 | NUR ---
Pt awake stating RN scared him. RN provided re-assurance and reality check.
--- NOTE | 2022-12-06 00:39 | NUR ---
Pt is awake, sitting by the side of the bed. RN provided pt with snacks.
--- NOTE | 2022-12-06 03:04 | NUR ---
Pt lies in bed with eyes open. RN asked pt if he needs anything, pt said he is doing ok.
--- NOTE | 2022-12-06 03:48 | NUR ---
Pt sitting up in bed.
--- NOTE | 2022-12-06 04:34 | NUR ---
Pt asleep in bed
--- NOTE | 2022-12-06 05:27 | NUR ---
Pt sat up on the edge of the bed reading a magazine
--- NOTE | 2022-12-06 06:30 | NUR ---
Pt awake at change of shift. He is calm and cooperative.
--- NOTE | 2022-12-06 08:30 | NUR ---
Pt awake for his meal, ate 100% then laid back down. He is compliant with taking his vitamins. He is pleasant, smiling and calm with staff and others.
[2022-12-06] MEDS: thiamine 100mg tablet PO SCH (08:36)
[2022-12-06] MEDS: multivitamins, therapeutics tablet PO SCH (08:36)
[2022-12-06] MEDS: folic acid 1mg tablet PO SCH (08:36)
--- NOTE | 2022-12-06 10:22 | NUR ---
Pt appears to be sleeping. RR even and unlabored.
--- NOTE | 2022-12-06 11:48 | NUR ---
Pt appears to be sleeping. RR is even and unlabored.
--- NOTE | 2022-12-06 14:25 | NUR ---
Pt appears to be sleeping. RR even and unlabored. No distress noted.
--- NOTE | 2022-12-06 16:22 | NUR ---
Pt had a bed bath, changed into clean scrubs, brushed his hair and teeth. His linens were changed and he is now watching TV with a snack. Pt denies compliants asking often, "why am I here?"
--- NOTE | 2022-12-06 18:18 | NUR ---
Pt is currently eating his dinner. He is calm and cooperative with staff and polite with peers.
--- NOTE | 2022-12-06 18:40 | NUR ---
Assumed care of patient. Pt is up to use the restroom at change of shift. Pt states he doesnt know why he is here. Pt ate 100% of his dinner, and reports he has no needs at this time. Pt is aware his parents are in the hospital at [facility].
--- NOTE | 2022-12-06 19:41 | NUR ---
pt is sitting in bed eyes open, pt is resting quietly.
[2022-12-06] MEDS: traZODone 50mg tablet PO SCH (19:51)
--- NOTE | 2022-12-06 21:35 | NUR ---
pt is laying on his right side appears to be asleep, rr 16 even and unlabored
--- NOTE | 2022-12-06 22:39 | NUR ---
Pt up to use the restoom and returned to bed.
--- NOTE | 2022-12-07 00:44 | NUR ---
Pt laying on his right side asleep rr even and unlabored
--- NOTE | 2022-12-07 03:53 | NUR ---
Pt is awake sitting quietly in bed. pt reports no needs at this time.
--- NOTE | 2022-12-07 05:44 | NUR ---
pt laying in bed sitting quietly eyes open rr even and unlabored.
--- NOTE | 2022-12-07 06:40 | NUR ---
Patient reclining in bed and awake. No distress observed. Continue to monitor.
[2022-12-07] MEDS: thiamine 100mg tablet PO SCH (08:20)
[2022-12-07] MEDS: folic acid 1mg tablet PO SCH (08:20)
[2022-12-07] MEDS: multivitamins, therapeutics tablet PO SCH (08:20)
--- NOTE | 2022-12-07 08:35 | NUR ---
Patient eating breakfast. No distress observed. Continue to monitor.
--- NOTE | 2022-12-07 10:22 | NUR ---
Patient reclining in bed awake. No distress observed. Continue to monitor
--- NOTE | 2022-12-07 12:19 | NUR ---
Patient eating lunch. No distress observed. Continue to monitor.
--- NOTE | 2022-12-07 14:10 | NUR ---
Patient watching T.V. No distress observed. Continue to monitor.
--- NOTE | 2022-12-07 16:04 | NUR ---
Patient sleeping supine with T.V. on. No distress observed. Continue to monitor.
--- NOTE | 2022-12-07 17:40 | NUR ---
Patient eating dinner. Patient is pleasant. No distress observed. Continue to monitor.
--- NOTE | 2022-12-07 19:41 | NUR ---
The patient has been resting on his bed. He is pleasant when approached. He has very poor short term memory issues. He stated that he does not know what he had for lunch. He has a good appetite and he ate two trays for dinner.
[2022-12-07] MEDS: traZODone 50mg tablet PO SCH (20:22)
--- NOTE | 2022-12-07 20:52 | NUR ---
The patient is resting on his bed quietly watching TV
--- NOTE | 2022-12-07 23:23 | NUR ---
The patient appears to be sleeping
--- NOTE | 2022-12-08 01:01 | NUR ---
The patient up to use the bathroom and is now back in bed
--- NOTE | 2022-12-08 03:04 | NUR ---
The patient awake but resting on his bed
--- NOTE | 2022-12-08 05:07 | NUR ---
The patient appears to be sleeping
--- NOTE | 2022-12-08 06:40 | NUR ---
Patient reclining in bed and watching T.V. No distress observed. Continue to monitor.
[2022-12-08] MEDS: thiamine 100mg tablet PO SCH (08:05)
[2022-12-08] MEDS: multivitamins, therapeutics tablet PO SCH (08:05)
[2022-12-08] MEDS: folic acid 1mg tablet PO SCH (08:05)
--- NOTE | 2022-12-08 08:08 | NUR ---
Patient eating breakfast. No distress observed. Continue to monitor.
--- NOTE | 2022-12-08 10:31 | NUR ---
Patient ambulatory to BR, steady gait. No distress observed. Continue to monitor.
--- NOTE | 2022-12-08 12:21 | NUR ---
Patient eating lunch. No distress observed. Continue to monitor.
--- NOTE | 2022-12-08 14:19 | NUR ---
Patient sleeping on left side. No distress observed. Continue to monitor.
--- NOTE | 2022-12-08 15:10 | NUR ---
HOUSE KEYS. Neighbor Eva Andrade, , picked up patient's house keys because patient's step mother was discharged from [facility]. Patient is not going back home as step-mother is not capable of taking care of patient.
--- NOTE | 2022-12-08 15:58 | NUR ---
Patient sleeping on right side. No distress observed. Continue to monitor.
--- NOTE | 2022-12-08 17:12 | NUR ---
patient sleeping on his back, snoring. appears to not be in distress.
--- NOTE | 2022-12-08 18:30 | NUR ---
ASSUMED CARE OF PATIENT, NOTED LAYING IN BED IN GREEN SCRUBS, UNKEMPT WITH STAINS ON SCRUBS AND HAIR UNBRUSHED. WILL ENCOURAGE USE OF ORAL CARE AND DOING BED BATH PER SELF.
[2022-12-08] MEDS: traZODone 50mg tablet PO SCH (19:01)
--- NOTE | 2022-12-08 20:22 | NUR ---
PATIENT RESTING IN BED WATCHING TV. PLEASANT, CALM AND COOPERATIVE. NO NEEDS NOTED. WILL CONTINUE TO MONITOR.
--- NOTE | 2022-12-08 22:00 | NUR ---
PATIENT RESTING QUIETLY WHILE WATCHING TV. NO NEEDS NOTED. NO S/SX OF DISTRESS NOTED. WILL CONTINUE TO MONITOR.
--- NOTE | 2022-12-08 23:41 | NUR ---
PATIENT SNORING AND SLEEPING ON RIGHT SIDE. RR EVEN/NONLABORED. NO S/SX OF DISTRESS NOTED. APPEARS TO BE COMFORTABLE. WILL CONTINUE TO MONITOR.
--- NOTE | 2022-12-09 01:14 | NUR ---
PATIENT SLEEPING, RR NONLABORED. NO S/SX OF DISTRESS NOTED.
--- NOTE | 2022-12-09 03:22 | NUR ---
Patient awake, suggested he try to get a few more hours of sleep. Patient states that he is awake. Pulled his curtain to cover light in his eyes. Patient trying to go back to sleep.
--- NOTE | 2022-12-09 04:30 | NUR ---
Patient awake. Is tossing and turning and trying to fall back asleep. RR even/nonlabored. No distress noted. Will continue to monitor.
--- NOTE | 2022-12-09 05:54 | NUR ---
Patient awake, has had a difficult time falling back asleep. Patient resting in bed comfortably with eyes open. Able to make needs known. No needs voiced at this time.
--- NOTE | 2022-12-09 06:32 | NUR ---
Patient is awake watching movies on portable t.v. Up to the restroom. Fresh water given. No complaints at this time.
[2022-12-09] MEDS: multivitamins, therapeutics tablet PO SCH (08:00)
[2022-12-09] MEDS: folic acid 1mg tablet PO SCH (09:14)
[2022-12-09] MEDS: thiamine 100mg tablet PO SCH (09:14)
--- NOTE | 2022-12-09 09:45 | NUR ---
Patient awoke early and ate his breakfast and went to the bathroom x 2. Patient is watching t.v. Patient is calm and cooperative. Medication compliant.
--- NOTE | 2022-12-09 11:15 | NUR ---
Patient up to the bathroom, then back to bed. Watching t.v.
--- NOTE | 2022-12-09 13:31 | NUR ---
Patient is laying on his right side sleeping, lightly snoring.
--- NOTE | 2022-12-09 18:34 | NUR ---
Patient sitting up at bedside eating dinner. Patient has been calm and cooperative.
[2022-12-09] MEDS: traZODone 50mg tablet PO SCH (20:09)
--- NOTE | 2022-12-09 23:08 | NUR ---
Patient laying in bed sleeping. No distress noted.
--- NOTE | 2022-12-10 01:16 | NUR ---
Patient awakened and is sitting up at bedside. Patient then went to the bathroom, then back to bed. Patient is awake and wiggling his feet. Patient remains calm.
--- NOTE | 2022-12-10 02:55 | NUR ---
Patient is laying in bed with his eyes closed tapping his feet together. No distress noted.
--- NOTE | 2022-12-10 03:27 | NUR ---
Patient just waved at RN.
--- NOTE | 2022-12-10 04:51 | NUR ---
Patient up to the bathroom, then back to bed.
--- NOTE | 2022-12-10 06:30 | NUR ---
Pt is lying in bed on his back watching TV.
[2022-12-10] MEDS: thiamine 100mg tablet PO SCH (08:08)
[2022-12-10] MEDS: multivitamins, therapeutics tablet PO SCH (08:08)
[2022-12-10] MEDS: folic acid 1mg tablet PO SCH (08:08)
--- NOTE | 2022-12-10 08:12 | NUR ---
Pt ambulated to the bathroom and back.
--- NOTE | 2022-12-10 09:28 | NUR ---
Pt is watching TV.
--- NOTE | 2022-12-10 11:15 | NUR ---
Balbina from administrator social welfare was here to discuss pt's situation. Pt's stepmom is in her mid 80's and just got out of the hospital. Also pt's dad just yesterday so sandra is dealing with that as well. Balbina spoke with a neighbor who was helping take stepmom to some appointments today. Neighbors have indicated that they were trying to help her find a caregiver for the stepmom. We are awaiting a call form stepraman.
--- NOTE | 2022-12-10 11:26 | NUR ---
Pt's neighbor Eva called to report that she is taking pt's stepmom to [facility] first to get her 's belongings and then she will bring her here to see patient and tell him about his father dying.
--- NOTE | 2022-12-10 11:32 | NUR ---
Pt left the unit with day care home provider and security to go take a shower.
--- NOTE | 2022-12-10 11:34 | NUR ---
Notified sr. social media & mobile manager of stepmom's pending visit. This RN will call Balbina when pt's stepmom comes to visit.
--- NOTE | 2022-12-10 13:33 | NUR ---
Pt is lying in bed watching TV.
--- NOTE | 2022-12-10 14:01 | NUR ---
Neighbor Eva is here visiting at bedside.
--- NOTE | 2022-12-10 14:13 | NUR ---
Francisco hendrix in [facility] - 12/10/22 at 1419 by FRANCESCO Aram Thurston is here at bedside visiting.
--- NOTE | 2022-12-10 14:13 | NUR ---
Pt is making statements that he doesn't wish to speak with his stepmom, that she plays doctor, she plays headgames, "that's why I'm here, I don't want to talk to her." Attempted reality orientation that he was living with her previously, that we need to figure out how he can get out of here, and it would be a good idea to hear what she has to say.
--- NOTE | 2022-12-10 14:14 | NUR ---
Aram Thurston is here at bedside visiting.
--- NOTE | 2022-12-10 14:16 | NUR ---
Pt became agitated and yelled at his stepmom to leave. parks worker Hui pruitt, she pulled stepmom aside to speak with her.
--- NOTE | 2022-12-10 16:02 | NUR ---
Pt up to the bathroom.
--- NOTE | 2022-12-10 17:18 | NUR ---
Pt has extremely impaired short term memory. He asked, "If I remember right, did I have some visitors today?"
--- NOTE | 2022-12-10 18:38 | NUR ---
Assumed patient care. Patient is resting quietly in bed. No distress.
--- NOTE | 2022-12-10 19:28 | NUR ---
Patient naps intermittently. No distress. In view from nurses station.
[2022-12-10] MEDS: traZODone 50mg tablet PO SCH (20:14)
--- NOTE | 2022-12-10 20:40 | NUR ---
Patient rests quietly in bed. He complains of a headache. No distress.
--- NOTE | 2022-12-10 22:02 | NUR ---
Patient is up to bathroom to void. No distress. He does complain out of a headache.
[2022-12-10] MEDS ORDERED: ibuprofen tablet 400 MG TABLET PO ONE (22:10)
--- NOTE | 2022-12-10 22:37 | NUR ---
Motrin given for headache, patient is sleeping once again.
--- NOTE | 2022-12-10 23:30 | NUR ---
Patient is now sleeping in a supine position. No distress. Regular resp, good color.
--- NOTE | 2022-12-11 00:15 | NUR ---
Patient awoke, ambulated to bathroom to void, he then returned to bed.
--- NOTE | 2022-12-11 01:27 | NUR ---
Patient is sleeping quietly. supine in bed. No distress.
--- NOTE | 2022-12-11 02:25 | NUR ---
Patient sleeping, in view from nursing station.
--- NOTE | 2022-12-11 04:50 | NUR ---
Patient awoke for vital signs. No subjective complaints. He is resting.
--- NOTE | 2022-12-11 05:30 | NUR ---
Patient is sleeping lightly. He awakens intermittently. Supine position in bed.
--- NOTE | 2022-12-11 06:38 | NUR ---
Patient is sleeping on his right side. Patient is snoring.
--- NOTE | 2022-12-11 07:05 | NUR ---
Received pt. sleeping in bed, respirations are even and unlabored.
[2022-12-11] MEDS: folic acid 1mg tablet PO SCH (08:48)
[2022-12-11] MEDS: multivitamins, therapeutics tablet PO SCH (08:48)
[2022-12-11] MEDS: thiamine 100mg tablet PO SCH (08:48)
--- NOTE | 2022-12-11 09:00 | NUR ---
Pt. is laying in bed awake at this time, no s/s of distress noted.
--- NOTE | 2022-12-11 10:58 | NUR ---
Pt. is laying awake in bed at this time on his left side.
--- NOTE | 2022-12-11 13:09 | NUR ---
Pt. is laying in bed sleeping at this time, rr are even and unlabored.
--- NOTE | 2022-12-11 15:00 | NUR ---
Pt. is sleeping in bed at this time, no s/s of distress noted.
--- NOTE | 2022-12-11 17:11 | NUR ---
Per hops farmworker, pt. will be discharging on Wednesday.
--- NOTE | 2022-12-11 17:11 | NUR ---
Pt. continues to sleep at this time, laying on his right side, rr are even and unlabored.
--- NOTE | 2022-12-11 18:31 | NUR ---
Patient eating dinner. No distress observed. Continue to monitor.
[2022-12-11] MEDS: traZODone 50mg tablet PO SCH (20:11)
--- NOTE | 2022-12-11 20:25 | NUR ---
Patient reclining in bed and awake. No distress observed. Continue to monitor.
--- NOTE | 2022-12-11 21:35 | NUR ---
Patient eating a sandwich. No distress observed. Continue to monitor.
--- NOTE | 2022-12-11 22:07 | NUR ---
Patient sleeping supine. No distress observed. Continue to monitor.
--- NOTE | 2022-12-12 00:03 | NUR ---
Patient reclining in his bed awake. No distress observed. Continue to monitor.
[2022-12-12] MEDS ORDERED: diphenhydrAMINE 25mg capsule PO PRN (00:15)
--- NOTE | 2022-12-12 02:17 | NUR ---
Patient sleeping supine. No distress observed. Continue to monitor.
--- NOTE | 2022-12-12 03:24 | NUR ---
Patient sleeping supine. No distress observed. Continue to monitor.
--- NOTE | 2022-12-12 05:22 | NUR ---
Patient sleeping supine. No distress observed. Continue to monitor.
[2022-12-12] MEDS: thiamine 100mg tablet PO SCH (07:33)
[2022-12-12] MEDS: folic acid 1mg tablet PO SCH (07:34)
[2022-12-12] MEDS: multivitamins, therapeutics tablet PO SCH (07:34)
--- NOTE | 2022-12-12 14:17 | NUR ---
Cared for patient this tour - VSS. Alert and oriented to self, place, and occasionally situation. PT up and walking around ind, but should have assistance so as not to get lost. Ate >80% of both meals today. Slept most of day with periods of sitting up at the side of the bed quietly. Awaiting placement. Will continue to monitor.
--- NOTE | 2022-12-12 19:00 | NUR ---
pt eating dinner, RN offered him fluids
--- NOTE | 2022-12-12 20:00 | NUR ---
Pt sitting up in bed
[2022-12-12] MEDS: traZODone 50mg tablet PO SCH (20:13)
--- NOTE | 2022-12-13 00:54 | NUR ---
Pt woke up stating he is hungry. RN offered him snacks.
--- NOTE | 2022-12-13 08:01 | NUR ---
Patient awake on arrival, states that he is hungry, breakfast in 40 minutes.
[2022-12-13] MEDS: multivitamins, therapeutics tablet PO SCH (08:38)
[2022-12-13] MEDS: thiamine 100mg tablet PO SCH (08:38)
[2022-12-13] MEDS: folic acid 1mg tablet PO SCH (08:38)
--- NOTE | 2022-12-13 08:40 | NUR ---
Patient eating breakfast. Patient is medication compliant. Reports that he has not slept all night.
--- NOTE | 2022-12-13 12:28 | NUR ---
Pt appears to be sleeping. His lunch tray is at his bedside. He does not appear to be interested in eating right now. He moaned when asked about eating his lunch.
--- NOTE | 2022-12-13 12:52 | NUR ---
Patient moved to bed 20.
--- NOTE | 2022-12-13 15:56 | NUR ---
Patient is laying in bed sleeping. Respirations are even and unlabored.
--- NOTE | 2022-12-13 16:54 | NUR ---
Patient up to the restroom and back to bed.
--- NOTE | 2022-12-13 18:10 | NUR ---
Patient is eating dinner.
--- NOTE | 2022-12-13 19:13 | NUR ---
pt moved to main er room 14 tv supplied from over flow
--- NOTE | 2022-12-13 19:30 | NUR ---
PT MOVED FROM OVERFLOW TO MAIN ER RM 14. TV PLACED IN ROOM, PT RESTING NO VERBAL OR VISUAL COMPLAINTS.
[2022-12-13] MEDS: traZODone 50mg tablet PO SCH (20:31)
--- NOTE | 2022-12-14 02:05 | NUR ---
PT SLEEPING. NO VISUAL SIGNS OF DISCOMFORT OR DISTRESS. = RISE AND FALL OF CHEST
[2022-12-14] MEDS: folic acid 1mg tablet PO SCH (08:23)
[2022-12-14] MEDS: multivitamins, therapeutics tablet PO SCH (08:24)
[2022-12-14] MEDS: thiamine 100mg tablet PO SCH (08:24)
--- NOTE | 2022-12-14 12:33 | NUR ---
Pt being moved back to overflow at 1235.
--- NOTE | 2022-12-14 12:34 | NUR ---
On shift change until 729, pt appeared to be sleeping, w/ resp WNL. Let pt sleep until he woke up at 729, at which time, I assessed him. Amb w/ pt to BR.
--- NOTE | 2022-12-14 12:51 | NUR ---
Patient back to OF bed #20. Pt's cell phone was placed back into his locker. Dated on belongings list in pt's file. Pt is calm, cooperative. Pt has father's phone number at bedside.
--- NOTE | 2022-12-14 13:21 | NUR ---
Spoke with Hui HANSEN. Pt was scheduled to be discharged, however JADE hasn't been able to speak with family. Once JADE is able to confirm family is aware, pt will be discharged. Possibly in the next couple of days. Pt has the legal right to go back home.
--- NOTE | 2022-12-14 15:35 | NUR ---
Pt lying in bed watching T.V. Pt denies all psychotic symptoms. Pt is calm/cooperative.
--- NOTE | 2022-12-14 17:27 | NUR ---
Note jamaalshahana in EDM - 12/14/22 at 1730 by SENG Pt sitting in her recliner with legs elevated. It has been difficult keeping pt down to keep her legs elevated. Pt's EF was 60-65, Dr. Barroso notified, no additional orders. Pt's headbands are back around her neck. Bands are not tight nor restricting circulation.
--- NOTE | 2022-12-14 17:30 | NUR ---
Patient sleeping restfully, quiet audible snoring sounds noted. RR even and unlabored.
[2022-12-14] MEDS: traZODone 50mg tablet PO SCH (20:39)
--- NOTE | 2022-12-14 21:50 | NUR ---
Pt arrived on unit just prior to dayshift. He is pleasant and cooperative but agitated and unable to stay still. Medications ordered per list of home med provided by pt. He remained agitated so given 100mg of Seroquel per new order. Pt's dad brought in home bipap. Respitory here to look at pts Bipap, Order by EZEQUIEL Donovan Okay for pt to use home bipap. Pt sleeping at this time bipap in place.
--- NOTE | 2022-12-14 22:09 | NUR ---
Disregard prior note on wrong pt.
--- NOTE | 2022-12-14 22:09 | NUR ---
Pt in bed at start of shift. Pleasant and cooperative, asked any questions pt laughs and says "you know I can't remember anything." Up independantly to BR and returns to bed.
--- NOTE | 2022-12-15 00:18 | NUR ---
Pt in bed except for x2 ambulated independantly to BR. Pt is pleasant and cooperative. Handles constant yelling by another pt with good humor.
--- NOTE | 2022-12-15 05:34 | NUR ---
Pt was awake sitting on side of bed for awhile. Appears to have gone back to sleep.
--- NOTE | 2022-12-15 07:00 | NUR ---
Pt sleeping comfortably, rr even and unlabored.
--- NOTE | 2022-12-15 09:00 | NUR ---
Pt was moved to bed #24. Pt calm/cooperative. Pt denies all psychotic symptoms. SW continues to work on pt's discharge.
[2022-12-15] MEDS: thiamine 100mg tablet PO SCH (09:28)
[2022-12-15] MEDS: multivitamins, therapeutics tablet PO SCH (09:28)
[2022-12-15] MEDS: folic acid 1mg tablet PO SCH (09:28)
--- NOTE | 2022-12-15 10:55 | NUR ---
Pt up to bathroom, gait steady.
--- NOTE | 2022-12-15 12:59 | NUR ---
Pt finished 100% of his lunch. Pt is back resting in mid robison's position. RR even and unlabored.
--- NOTE | 2022-12-15 15:17 | NUR ---
Pt awake in his room. JADE Ames came and spoke with patient about going home. Pt seems okay with it, "not sure if she's going to like it."
--- NOTE | 2022-12-15 17:30 | NUR ---
Pt lying in bed awake. Pt calm, smiles when approached.
--- NOTE | 2022-12-15 19:52 | NUR ---
Patient quietly lying on his bed watching T.V
[2022-12-15] MEDS: traZODone 50mg tablet PO SCH (21:20)
--- NOTE | 2022-12-15 22:00 | NUR ---
Pt watching T.V. Pt has no complaints. When asked how he is doing, pt shrugs shoulders and says "I guess okay." Pt said he was hungry, given turkey sandwich and milk.
--- NOTE | 2022-12-16 00:36 | NUR ---
Pt resting comfortably in low robison's position, rr even and unlabored.
--- NOTE | 2022-12-16 02:30 | NUR ---
Pt continues to sleep restfully, rr even and unlabored.
--- NOTE | 2022-12-16 04:30 | NUR ---
Pt awake r/t the disruption of another patient. Pt was given a cup coffe. Pt is plesant and calm.
[2022-12-16 05:50] VITALS: BP 103/74
--- NOTE | 2022-12-16 06:36 | NUR ---
Patient awake lying on his bed. Unable to sleep r/t disruptive patient.
--- NOTE | 2022-12-16 07:08 | NUR ---
Patient reclining in bed awake. No distress observed at this time. Continue to monitor.
[2022-12-16] MEDS: multivitamins, therapeutics tablet PO SCH (08:00)
[2022-12-16] MEDS: thiamine 100mg tablet PO SCH (08:00)
[2022-12-16] MEDS: folic acid 1mg tablet PO SCH (08:00)
--- NOTE | 2022-12-16 08:11 | NUR ---
Patient eating breakfast. No distress observed. Continue to monitor.
--- NOTE | 2022-12-16 10:19 | NUR ---
Patient reclining in bed awake. No distress observed. Continue to monitor.
--- NOTE | 2022-12-16 12:12 | NUR ---
Patient eating lunch. No distress observed. Continue to monitor.
--- NOTE | 2022-12-16 14:11 | NUR ---
Patient sleeping on right side. No distress observed. Continue to monitor.
== END 2022-12-16 16:20 | disposition admitted as inpatient to this hospital (09) ==
LOC: ER 16:53
DX: S06.89AA Other specified intracranial injury with loss of consciousness status unknown, initial encounter (principal); Z20.822 Contact with and (suspected) exposure to COVID-19; F10.129 Alcohol abuse with intoxication, unspecified; Y90.9 Presence of alcohol in blood, level not specified; F32.A Depression, unspecified; K21.9 Gastro-esophageal reflux disease without esophagitis; Z87.81 Personal history of (healed) traumatic fracture; X58.XXXA Exposure to other specified factors, initial encounter; Y93.89 Activity, other specified; Y92.89 Other specified places as the place of occurrence of the external cause; Y99.8 Other external cause status
CPT/HCPCS: 36415; 80053; 80305; 80320; 81001; 85025; 87811; 96372; 99285; J7030; 96360

== ENCOUNTER 2023-10-21 23:43 | Emergency (ER) | payer MEDICAID ==
[~2023-10-21] VITALS: Ht 185.4 cm; Wt 100.1 kg
[~2023-10-21 23:43] MED LIST changes: -CHOL500049 PO; -DONE-46 PO; -LACT1CAP26 PO; +NO HOME MEDS
[2023-10-22 00:31] VITALS: TEMP 98.2
[2023-10-22 16:13] VITALS: BP 107/72; PULSE 81; RESP 18; O2SAT 99
== END 2023-10-22 16:25 | disposition home or self-care (01) ==
LOC: ER 23:44
DX: S06.9XAA Unspecified intracranial injury with loss of consciousness status unknown, initial encounter (principal); K21.9 Gastro-esophageal reflux disease without esophagitis; F32.A Depression, unspecified; F10.90 Alcohol use, unspecified, uncomplicated; X58.XXXA Exposure to other specified factors, initial encounter; Y93.89 Activity, other specified; Y92.89 Other specified places as the place of occurrence of the external cause; Y99.8 Other external cause status
CPT/HCPCS: 99285

== ENCOUNTER 2025-01-16 11:10 | Emergency (ER) | payer MEDICAID ==
[~2025-01-16] VITALS: Ht 185.4 cm; Wt 94.8 kg
[2025-01-16 15:00] VITALS: BP 97/68; PULSE 60; RESP 14; TEMP 98.6; O2SAT 98
== END 2025-01-16 15:03 | disposition home or self-care (01) ==
LOC: ER 11:10
DX: R41.3 Other amnesia (principal); K21.9 Gastro-esophageal reflux disease without esophagitis; F32.A Depression, unspecified; Z87.820 Personal history of traumatic brain injury; Z90.89 Acquired absence of other organs
CPT/HCPCS: 70450; 99284

== ENCOUNTER → 2025-01-16 | Emergency (ER) | payer MEDICAID ==
[~2025-01-16] VITALS: Ht 182.9 cm; Wt 94.8 kg
[2025-01-16 16:21] VITALS: BP 99/64; PULSE 83; RESP 18; TEMP 98.9; O2SAT 97
== END | disposition left against medical advice (07) ==
LOC: ER 16:14
DX: Z00.8 Encounter for other general examination (principal); K21.9 Gastro-esophageal reflux disease without esophagitis; F32.A Depression, unspecified; Z90.89 Acquired absence of other organs
CPT/HCPCS: 96372; 99281; 99283